=== PATIENT | female | born 1985 | race Hispanic/Latino ===

== ENCOUNTER 2020-05-06 05:15 | Inpatient (IN) | payer MEDICARE, OTHER ==
[2020-05-05] MEDS: SODIUM CHLORIDE 0.9% 1000ML 1,000 ML IV SCH (23:30)
[~2020-05-06] VITALS: Ht 162.6 cm; Wt 105.2 kg
[2020-05-06 06:32] LABS: BASOPHILS # (AUTO) 0.1 (0.0-0.1); BASOPHILS % 0.4 % (0.0-1.0); EOSINOPHILS # (AUTO) 0.1 (0.0-0.4); EOSINOPHILS % 0.4 % (0.0-6.0); HEMATOCRIT 39.7 % (34.2-44.1); HEMOGLOBIN 13.3 g/dL (12.0-16.0); LYMPHOCYTES # (AUTO) 1.7 (1.0-3.2); MEAN CORPUSCULAR HEMOGLOBIN 32.4 pg (28-32); MEAN CORPUSCULAR HGB CONC 33.5 g/dL (31-35); MEAN CORPUSCULAR VOLUME 96.8 fL (81-99); MONOCYTES # (AUTO) 1.3 (0.2-0.8); MONOCYTES % 8.1 % (4.4-11.3); NEUTROPHILS # (AUTO) 12.4 (2.1-6.9); NEUTROPHILS % 79.3 % (38.7-80.0); PLATELET COUNT 290 x10e3/uL (140-360); RED CELL DISTRIBUTION WIDTH 13.6 % (11.7-14.4)
[2020-05-06 07:07] LABS: ALANINE AMINOTRANSFERASE 14 IU/L (0-55); ALBUMIN 3.8 g/dL (3.5-5.0); ALBUMIN/GLOBULIN RATIO 0.8 (0.8-2.0); ALKALINE PHOSPHATASE 106 IU/L (40-150); ANION GAP 18.5 mmol/L (8-16); BLOOD UREA NITROGEN 11 mg/dL (7-26); BUN/CREATININE RATIO 12 (6-25); CALCIUM 9.3 mg/dL (8.4-10.2); CARBON DIOXIDE 18 mmol/L (22-29); CHLORIDE 103 mmol/L (98-107); CREATINE KINASE 132 IU/L (29-168); EST GLOMERULAR FILTRATION RATE > 60 ML/MIN (60-); GLUCOSE 85 mg/dL (74-118); POTASSIUM 3.5 mmol/L (3.5-5.1); SODIUM 136 mmol/L (136-145)
--- NOTE | 2020-05-06 07:15 | NUR ---
REPORT AND CARE OF PATIENT GIVEN TO DONNIE BULL
[2020-05-06 11:11] LABS: CLARITY,URINE SL CLOUDY (CLEAR); COLOR,URINE YELLOW (YELLOW); LEUKOCYTE ESTERASE ,URINE LARGE (NEGATIVE)
[2020-05-06 11:12] LABS: BILIRUBIN,URINE NEGATIVE (NEGATIVE); KETONES,URINE NEGATIVE (NEGATIVE); NITRITE,URINE NEGATIVE (NEGATIVE); PROTEIN,URINE DIPSTICK 2+ (NEGATIVE); URINE UROBILINOGEN 0.2 mg/dL (0.2 - 1)
[2020-05-06 11:15] LABS: AMPHETAMINES SCREEN,URINE NEGATIVE (NEGATIVE); BENZODIAZEPINES SCREEN,URINE POSITIVE (NEGATIVE); PHENCYCLIDINE SCREEN,URINE NEGATIVE (NEGATIVE)
[2020-05-06 11:25] LABS: BACTERIA,URINE RARE /HPF; EPITHELIAL CELLS,URINE FEW /LPF; RBC,URINE 21-50 /HPF (0-5); WBC,URINE (MAN) 21-50 /HPF (0-5)
[2020-05-06] MEDS ORDERED: ACETAMINOPHEN 325 MG TAB PO ONE ×2 (11:30→19:00)
[2020-05-06] MEDS ORDERED: SODIUM CHLORIDE 0.9% 1000ML 1,000 ML IV SCH (11:30)
[2020-05-06] MEDS ORDERED: SODIUM CHLORIDE 0.9% 1000ML 1,000 ML IV STA (11:38)
[2020-05-06] MEDS ORDERED: CEFTRIAXONE SOD 1 GM/NS 50 ML 50 ML IV ONE (11:45)
[2020-05-06] MEDS ORDERED: ONDANSETRON HCL INJ 2MG/ML 2ML 2 MG/ML VIAL IV STA (12:55)
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
[2020-05-06] MEDS ORDERED: ONDANSETRON HCL INJ 2MG/ML 2ML 2 MG/ML VIAL ONE (13:06)
[2020-05-06] MEDS ORDERED: PROMETHAZINE 12.5MG/ NACL 0.9% 12.5 MG/50 ML BAG IV ONE (15:30)
--- NOTE | 2020-05-06 16:42 | NUR ---
PT NOTED TO HAVE FEVER OF 103.3, DR. SENA NOTIFIED.
[2020-05-06] MEDS ORDERED: VANCOMYCIN 1GM/NS 250 ML 250 ML IV ONE (17:00)
--- NOTE | 2020-05-06 17:45 | Diagnostic Imaging Report ---
EXAMINATION: CHEST SINGLE (PORTABLE) INDICATION: ^Y ^FEVER ^[id number] ^1700 COMPARISON: None FINDINGS: AP view TUBES and LINES: None. LUNGS: Lungs are well inflated. Mild haziness in the left lower lobe. There is no evidence of pneumonia or pulmonary edema. PLEURA: No pleural effusion or pneumothorax. HEART AND MEDIASTINUM: The cardiomediastinal silhouette is unremarkable.. BONES AND SOFT TISSUES: Orthopedic hardware is overlying the cervical and upper thoracic spine. Soft tissues are unremarkable. UPPER ABDOMEN: No free air under the diaphragm. IMPRESSION: Nonspecific mild haziness in the left lower lobe without consolidations. Signed by: Dr. Padmaja Fink M.D. on 05/06/2020 5:41 PM
[2020-05-06] MEDS ORDERED: VANCOMYCIN 1GM/NS 250 ML 250 ML ONE (20:00)
[2020-05-06] MEDS ORDERED: MELATONIN 5 MG TABLET PO PRN (22:00)
[2020-05-06] MEDS: MIDODRINE 2.5 MG TAB PO SCH (22:00)
[2020-05-06] MEDS ORDERED: DOCUSATE SODIUM 100 MG CAP PO PRN (22:00)
[2020-05-06] MEDS: ACETAMINOPHEN 325 MG TAB PO PRN (22:35)
--- NOTE | 2020-05-06 22:48 | NUR ---
RECEIVED REPORT FROM [facility] NURSE. PATIENT ARRIVED VIA STRETCHER TO THE UNIT. PATIENT COMPLAINING OF BEING HOT AND HAVING GENERALIZED PAIN. PAIN MEDICATION WAS ADMINISTERED FEW MINUTES BEFORE ARRIVAL TO THE UNIT. VANCOMYCIN WAS RUNNING WHEN PATIENT ARRIVED. PATIENT IS A&OX3. CALL LIGHT AND BELONGINGS WITHIN REACH. PATIENT IS PARALYZED FROM T3 DOWN
[2020-05-06 22:55] VITALS: BP 115/60
[2020-05-06 22:56] VITALS: BP 115/60
[2020-05-06] MEDS: ONDANSETRON HCL INJ 2MG/ML 2ML 2 MG/ML VIAL IV PRN (23:27)
[2020-05-06] MEDS: MEROPENEM 1GM 100 ML IV SCH (23:30)
[2020-05-06] MEDS: SODIUM CHLORIDE 0.9% 1000ML 1,000 ML IV SCH (23:30)
[2020-05-07] VITALS (9 sets, daily range): BP systolic 95–125; BP diastolic 49–61
[2020-05-07] MEDS: IBUPROFEN 600 MG TAB PO PRN (00:39)
[2020-05-07] MEDS ORDERED: PNEUMOCOCCAL VACCINE POLYVALENT 23 MCG/0.5 ML VIAL IM SCH (02:35)
[2020-05-07] MEDS ORDERED: TYLENOL WITH C1 EACH PO (02:39)
[2020-05-07] MEDS ORDERED: HYDRALAZINE HCL25 MG PO (02:39)
[2020-05-07] MEDS ORDERED: BACLOFEN10 MG PO (02:39)
[2020-05-07] MEDS ORDERED: SERTRALINE HCL100 MG PO (02:39)
[2020-05-07] MEDS ORDERED: LEVOTHYROXINE50 MCG PO (02:39)
[2020-05-07] MEDS ORDERED: GABAPENTIN300 MG PO (02:39)
[2020-05-07] MEDS ORDERED: OXYBUTYNIN CHLOR5 MG PO (02:39)
[2020-05-07] MEDS: MEROPENEM 1GM 100 ML IV SCH ×3 (05:29→21:22)
[2020-05-07 06:08] LABS: BASOPHILS # (AUTO) 0.1 (0.0-0.1); BASOPHILS % 0.4 % (0.0-1.0); EOSINOPHILS # (AUTO) 0.1 (0.0-0.4); EOSINOPHILS % 0.7 % (0.0-6.0); HEMATOCRIT 33.3 % (34.2-44.1); HEMOGLOBIN 10.7 g/dL (12.0-16.0); LYMPHOCYTES # (AUTO) 1.1 (1.0-3.2); LYMPHOCYTES % 9.3 % (18.0-39.1); MEAN CORPUSCULAR HEMOGLOBIN 31.9 pg (28-32); MEAN CORPUSCULAR HGB CONC 32.1 g/dL (31-35); MEAN CORPUSCULAR VOLUME 99.4 fL (81-99); MONOCYTES # (AUTO) 0.9 (0.2-0.8); MONOCYTES % 7.7 % (4.4-11.3); NEUTROPHILS # (AUTO) 9.2 (2.1-6.9); NEUTROPHILS % 81.3 % (38.7-80.0); PLATELET COUNT 192 x10e3/uL (140-360); RED BLOOD COUNT 3.35 x10e6/uL (3.6-5.1)
[2020-05-07 06:28] LABS: ALANINE AMINOTRANSFERASE 10 IU/L (0-55); ALBUMIN 2.7 g/dL (3.5-5.0); ALBUMIN/GLOBULIN RATIO 0.7 (0.8-2.0); ALKALINE PHOSPHATASE 73 IU/L (40-150); ANION GAP 9.4 mmol/L (8-16); BLOOD UREA NITROGEN 11 mg/dL (7-26); BUN/CREATININE RATIO 15 (6-25); CALCIUM 8.2 mg/dL (8.4-10.2); CARBON DIOXIDE 24 mmol/L (22-29); CHLORIDE 109 mmol/L (98-107); CREATININE, SERUM 0.71 mg/dL (0.57-1.11); EST GLOMERULAR FILTRATION RATE > 60 ML/MIN (60-); GLUCOSE 93 mg/dL (74-118); POTASSIUM 3.4 mmol/L (3.5-5.1); SODIUM 139 mmol/L (136-145)
--- NOTE | 2020-05-07 07:13 | NUR ---
GAVE BEDSIDE SHIFT REPORT TO ONCOMING NURSE. CALL LIGHT WITHIN REACH. PATIENT IN BED. HOURLY ROUNDING PERFORMED
[2020-05-07] MEDS: MIDODRINE 2.5 MG TAB PO SCH ×3 (08:48→16:40)
[2020-05-07] MEDS: ONDANSETRON HCL INJ 2MG/ML 2ML 2 MG/ML VIAL IV PRN (10:00)
[2020-05-07] MEDS ORDERED: POTASSIUM CHLORIDE 20 MEQ TAB CR PO STA (13:29)
[2020-05-07] MEDS: BACLOFEN 10 MG TAB PO SCH ×3 (16:32→20:20)
[2020-05-07] MEDS: GABAPENTIN 300 MG CAP PO SCH ×2 (16:32→20:20)
[2020-05-07] MEDS: OXYBUTYNIN CHLORIDE 5 MG TAB PO SCH ×2 (16:32→20:20)
[2020-05-07] MEDS: ENOXAPARIN SOD INJ 40 MG/0.4 ML SYR SC SCH (16:40)
[2020-05-07] MEDS ORDERED: BACLOFEN 10 MG TAB PO SCH (18:00)
--- NOTE | 2020-05-07 18:50 | NUR ---
RECEIVED REPORT FROM PREVIOUS NURSE. CALL LIGHT WITHIN REACH. PATIENT IN BED. ROUNDING PERFORMED
[2020-05-07] MEDS: ACETAMINOPHEN 325 MG TAB PO PRN (20:40)
[2020-05-07] MEDS ORDERED: GABAPENTIN 300 MG CAP PO SCH (21:00)
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
--- NOTE | 2020-05-07 21:58 | Consultation ---
DATE OF CONSULTATION: REASON FOR CONSULTATION: UTI. HISTORY OF PRESENT ILLNESS: This patient, who is a very pleasant 35-year-old, who comes in with fever and chills, urgency and frequency. The patient is having urgency and frequency. She was admitted. The patient has history of EtOH, urinary incontinence, self-catheterization as an outpatient. PAST MEDICAL HISTORY: UTI. PAST SURGICAL HISTORY: Otherwise denies. PHYSICAL EXAMINATION: GENERAL: She is currently alert and oriented. VITALS SIGNS: Stable. Currently afebrile. HEENT: She is not icteric. NECK: Supple. CHEST: Clear. HEART: S1 and S2. ABDOMEN: Soft. LABORATORY DATA: Reviewed. IMPRESSION: Urinary tract infection, present on admission. Agree with blood cultures and urine cultures. Agree with intravenous antibiotic of meropenem. Supportive care is order. Further recommendations depending on the finding of her laboratory data and culture. MD JORDEN Camarillo/OREN /[id number]
[2020-05-08] VITALS (7 sets, daily range): BP systolic 97–123; BP diastolic 41–68
[2020-05-08] MEDS: LEVOTHYROXINE SODIUM 75 MCG TAB PO SCH (05:36)
[2020-05-08] MEDS: MEROPENEM 1GM 100 ML IV SCH ×3 (05:36→21:10)
[2020-05-08 06:16] LABS: BASOPHILS % 0.4 % (0.0-1.0); EOSINOPHILS # (AUTO) 0.2 (0.0-0.4); EOSINOPHILS % 2.1 % (0.0-6.0); HEMATOCRIT 31.1 % (34.2-44.1); HEMOGLOBIN 9.8 g/dL (12.0-16.0); LYMPHOCYTES # (AUTO) 1.1 (1.0-3.2); LYMPHOCYTES % 11.3 % (18.0-39.1); MEAN CORPUSCULAR HEMOGLOBIN 32.6 pg (28-32); MEAN CORPUSCULAR HGB CONC 31.5 g/dL (31-35); MEAN CORPUSCULAR VOLUME 103.3 fL (81-99); MONOCYTES # (AUTO) 0.6 (0.2-0.8); MONOCYTES % 5.7 % (4.4-11.3); NEUTROPHILS # (AUTO) 7.8 (2.1-6.9); NEUTROPHILS % 79.8 % (38.7-80.0); PLATELET COUNT 197 x10e3/uL (140-360); RED BLOOD COUNT 3.01 x10e6/uL (3.6-5.1); RED CELL DISTRIBUTION WIDTH 14.2 % (11.7-14.4)
[2020-05-08 06:37] LABS: ANION GAP 7.8 mmol/L (8-16); BLOOD UREA NITROGEN 8 mg/dL (7-26); BUN/CREATININE RATIO 11 (6-25); CALCIUM 7.9 mg/dL (8.4-10.2); CARBON DIOXIDE 25 mmol/L (22-29); CHLORIDE 112 mmol/L (98-107); EST GLOMERULAR FILTRATION RATE > 60 ML/MIN (60-); GLUCOSE 90 mg/dL (74-118); POTASSIUM 3.8 mmol/L (3.5-5.1); SODIUM 141 mmol/L (136-145)
--- NOTE | 2020-05-08 07:03 | NUR ---
GAVE BEDSIDE SHIFT REPORT TO ONCOMING NURSE. CALL LIGHT WITHIN REACH. PATIENT IN BED. HOURLY ROUNDING PERFORMED.
[2020-05-08] MEDS: BACLOFEN 10 MG TAB PO SCH ×4 (07:59→21:10)
[2020-05-08] MEDS: GABAPENTIN 300 MG CAP PO SCH ×3 (07:59→21:10)
[2020-05-08] MEDS: MIDODRINE 2.5 MG TAB PO SCH ×2 (07:59→12:33)
[2020-05-08] MEDS: SERTRALINE HCL 100 MG TAB PO SCH (07:59)
[2020-05-08] MEDS: OXYBUTYNIN CHLORIDE 5 MG TAB PO SCH ×3 (07:59→21:10)
--- NOTE | 2020-05-08 14:26 | Progress Note ---
DATE: 05/08/2020 Medicine Progress Note SUBJECTIVE: The patient is doing well today with no complaints. She has been afebrile overnight with no issues. She did have a T-max of 100. Waiting for urine cultures. PHYSICAL EXAMINATION: VITAL SIGNS: Temperature currently is 98.5, T-max is 100, pulse 95, respiratory rate is 20, blood pressure last recorded was 97/56, but apparently she has low blood pressures to begin with, 98% on room air. GENERAL: Not in acute distress. Alert and oriented x3. Cooperative on examination. HEENT: Head; normocephalic, atraumatic. Eyes; pupils are equal, round, and reactive to light bilaterally. Extraocular movements intact bilaterally. Throat; no evidence of erythema or exudates in the posterior pharynx. Has poor dentition. NECK: Supple. Good range of motion. PULMONARY: Clear to auscultation bilaterally. No wheezing, no rales, no rhonchi, no crackles appreciated. CARDIOVASCULAR: Positive S1 and S2. No murmurs, rubs, or gallops appreciated. ABDOMEN: Soft, nondistended, and nontender to palpation. Bowel sounds present. MUSCULOSKELETAL: Strength is 5/5 throughout. No evidence of any muscle deficits on examination. No weakness appreciated. NEUROLOGIC: Cranial nerves 2 through 12 grossly intact. No evidence of any neurological deficits on exam. SKIN: Intact. Warm to touch. Good cap refill. PSYCHIATRIC: Normal affect and mood. EXTREMITIES: No edema. Good range of motion throughout. LABORATORY DATA: White count 9.7, hemoglobin 9.1, hematocrit is 31, and platelets of 197. Chemistry; sodium 141, potassium 3.8, chloride 112, bicarb 25, anion gap of 7.8, BUN is 8, creatinine is 0.7, glucose 90, and calcium is 7.9. LFTs within normal range. Urine cultures, gram-negative bacilli. Blood cultures, no growth to date. Chest x-ray, nonspecific mild haziness in the left lower lobe without consolidation. Coronavirus PCR was found to be negative. IMPRESSION: 1. Metabolic encephalopathy, multifactorial from urinary tract infection as well as polysubstance abuse, now resolved. 2. Chronic alcohol abuse. 3. Positive urine drug screen. 4. Urinary tract infection. 5. Paraplegia, requiring chronic pain control. PLAN: At this time, urine cultures positive, awaiting for ID and sensitivities. Blood cultures no growth to date. Continue with IV antibiotics, in which ID is also following. She is on Lovenox for DVT prophylaxis. Replace electrolytes accordingly. Get a.m. labs. As for her blood pressure, I would like to talk with her and see if her blood pressure is always low. It seems like she has a low blood pressure to begin with. I also put on her baclofen and gabapentin, but she was requiring significant number of high doses, which were way past in maximum doses and which now are decreasing to appropriate levels. If her labs are back tomorrow, she can be potentially discharged home with oral antibiotic therapy. MD RUDDY Lin/OREN /[id number]
[2020-05-08] MEDS: ENOXAPARIN SOD INJ 40 MG/0.4 ML SYR SC SCH (18:24)
[2020-05-08] MEDS: IBUPROFEN 600 MG TAB PO PRN (22:02)
[2020-05-09] VITALS: BP 101/59
[2020-05-09 04:00] VITALS: BP 98/58
[2020-05-09] MEDS ORDERED: SODIUM CHLORIDE 0.9% 250ML 250 ML ONE (05:31)
[2020-05-09] MEDS: MEROPENEM 1GM 100 ML IV SCH (05:42)
[2020-05-09] MEDS: LEVOTHYROXINE SODIUM 75 MCG TAB PO SCH (06:30)
--- NOTE | 2020-05-09 07:00 | NUR ---
Bedside rounding completed and the pt. is in bed awake.
[2020-05-09 08:11] VITALS: BP 101/64
[2020-05-09 08:31] VITALS: BP 101/64
[2020-05-09] MEDS: OXYBUTYNIN CHLORIDE 5 MG TAB PO SCH (09:28)
[2020-05-09] MEDS: GABAPENTIN 300 MG CAP PO SCH (09:30)
[2020-05-09] MEDS: BACLOFEN 10 MG TAB PO SCH ×2 (09:30→14:19)
[2020-05-09] MEDS: SERTRALINE HCL 100 MG TAB PO SCH (09:30)
[2020-05-09] MEDS: ACETAMINOPHEN 325 MG TAB PO PRN (09:37)
[2020-05-09] MEDS ORDERED: CEFTRIAXONE SOD 2 GM/NS 100 ML 100 ML IV SCH (10:30)
[2020-05-09 11:52] VITALS: BP 104/60
[2020-05-09] MEDS ORDERED: ONDANSETRON HCL 4 MG ORAL DISINTEGRATING TAB PO PRN (13:15)
[2020-05-09] MEDS ORDERED: PNEUMOCOCCAL VACCINE POLYVALENT 23 MCG/0.5 ML VIAL IM ONE (15:00)
[2020-05-09 15:25] VITALS: BP 103/72
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
== END 2020-05-09 18:54 | disposition home or self-care (01) | DRG 689 ==
LOC: ER 05:45 → ERHOLD 20:19 → MED/SURG2 23:13 → OBSVTOIN 05-08 12:58
PROVIDERS: ADMIT Internal Medicine; ATTEND Internal Medicine
DX: N39.0 Urinary tract infection, site not specified (principal); G93.41 Metabolic encephalopathy; G82.20 Paraplegia, unspecified; F19.10 Other psychoactive substance abuse, uncomplicated; F10.10 Alcohol abuse, uncomplicated; G89.29 Other chronic pain; Z11.59 Encounter for screening for other viral diseases
CPT/HCPCS: 36415; 51701; 71045; 80048; 80053; 80307; 80320; 81001; 82550; 82553; 83605; 84484; 85025; 87040; 87086; 87186; 87635; 90732; 99285; G0378; J0696; J1650; J2405; J2550; J3370; J7030; J7050

== ENCOUNTER 2021-10-15 14:35 | Emergency (ER) | payer MEDICARE ==
[~2021-10-15] VITALS: Ht 162.6 cm; Wt 105.2 kg
[~2021-10-15 14:35] MED LIST: BACLOFEN10 MG PO; GABAPENTIN300 MG PO; HYDRALAZINE HCL25 MG PO; LEVOTHYROXINE50 MCG PO; OXYBUTYNIN CHLOR5 MG PO; SERTRALINE HCL100 MG PO; TYLENOL WITH C1 EACH PO
[2021-10-15 16:02] LABS: BASOPHILS # (AUTO) 0.1 (0.0-0.1); BASOPHILS % 0.7 % (0.0-1.0); EOSINOPHILS # (AUTO) 0.1 (0.0-0.4); EOSINOPHILS % 1.2 % (0.0-6.0); HEMATOCRIT 41.1 % (34.2-44.1); HEMOGLOBIN 13.4 g/dL (12.0-16.0); LYMPHOCYTES # (AUTO) 1.6 (1.0-3.2); LYMPHOCYTES % 16.6 % (18.0-39.1); MEAN CORPUSCULAR HEMOGLOBIN 31.3 pg (28-32); MEAN CORPUSCULAR HGB CONC 32.6 g/dL (31-35); MONOCYTES # (AUTO) 0.4 (0.2-0.8); MONOCYTES % 3.7 % (4.4-11.3); NEUTROPHILS # (AUTO) 7.5 (2.1-6.9); PLATELET COUNT 235 x10e3/uL (140-360); RED BLOOD COUNT 4.28 x10e6/uL (3.6-5.1); RED CELL DISTRIBUTION WIDTH 13.9 % (11.7-14.4)
[2021-10-15 16:19] LABS: CLARITY,URINE HAZY (CLEAR); COLOR,URINE YELLOW (YELLOW); KETONES,URINE NEGATIVE (NEGATIVE); LEUKOCYTE ESTERASE ,URINE LARGE (NEGATIVE); NITRITE,URINE NEGATIVE (NEGATIVE); PROTEIN,URINE DIPSTICK TRACE (NEGATIVE); URINE UROBILINOGEN 0.2 mg/dL (0.2 - 1)
[2021-10-15 16:31] LABS: BACTERIA,URINE MODERATE /HPF; WBC,URINE (MAN) 21-50 /HPF (0-5)
[2021-10-15 16:43] LABS: ALBUMIN 3.7 g/dL (3.5-5.0); ALBUMIN/GLOBULIN RATIO 0.7 (0.8-2.0); CREATININE, SERUM 0.81 mg/dL (0.57-1.11)
[2021-10-15] MEDS ORDERED: CEFTRIAXONE 1 GM VIAL IM ONE (17:30)
[2021-10-15] MEDS ORDERED: ACETAMINOPHEN 325 MG TAB PO ONE (17:45)
[2021-10-15] MEDS ORDERED: KEFLEX125 MG/5 M PO (18:27)
[2021-10-15] MEDS ORDERED: MOTRIN800 MG PO (18:27)
[2021-10-15] MEDS ORDERED: CEPHALEXIN500 MG PO (18:30)
[2021-10-15 19:01] VITALS: BP 154/78
== END 2021-10-15 19:02 | disposition home or self-care (01) ==
LOC: ER 14:39
DX: R10.30 Lower abdominal pain, unspecified (principal); N39.0 Urinary tract infection, site not specified; F32.A Depression, unspecified; G62.9 Polyneuropathy, unspecified; G82.20 Paraplegia, unspecified
CPT/HCPCS: 36415; 74176; 80053; 81001; 84702; 85025; 99283; J0696

== ENCOUNTER 2022-05-28 09:40 | Inpatient (IN) | payer MEDICARE ==
[~2022-05-28] VITALS: Ht 162.6 cm; Wt 105.2 kg
[~2022-05-28 09:40] MED LIST changes: +CEPHALEXIN500 MG PO; +KEFLEX125 MG/5 M PO; +MOTRIN800 MG PO
[2022-05-28] MEDS ORDERED: CEFTRIAXONE 1 GM VIAL IV NR (10:15)
[2022-05-28] MEDS ORDERED: SODIUM CHLORIDE 0.9% IV ONE (10:15)
[2022-05-28 10:45] LABS: BASOPHILS % 0.6 % (0.0-1.0); EOSINOPHILS # (AUTO) 0.1 (0.0-0.4); EOSINOPHILS % 2.2 % (0.0-6.0); HEMATOCRIT 33.3 % (34.2-44.1); HEMOGLOBIN 10.7 g/dL (12.0-16.0); LYMPHOCYTES # (AUTO) 1.2 (1.0-3.2); LYMPHOCYTES % 21.8 % (18.0-39.1); MEAN CORPUSCULAR HEMOGLOBIN 29.6 pg (28-32); MEAN CORPUSCULAR HGB CONC 32.1 g/dL (31-35); MEAN CORPUSCULAR VOLUME 92.2 fL (81-99); MONOCYTES # (AUTO) 0.3 (0.2-0.8); MONOCYTES % 5.5 % (4.4-11.3); NEUTROPHILS # (AUTO) 3.8 (2.1-6.9); NEUTROPHILS % 69.2 % (38.7-80.0); PLATELET COUNT 229 x10e3/uL (140-360); RED BLOOD COUNT 3.61 x10e6/uL (3.6-5.1); RED CELL DISTRIBUTION WIDTH 14.7 % (11.7-14.4)
[2022-05-28 10:55] LABS: INR 1.02; PARTIAL THROMBOPLASTIN TIME 31.1 seconds (23.8-35.5); PROTHROMBIN TIME 14.3 seconds (11.9-14.5)
[2022-05-28 11:06] LABS: ALBUMIN 3.5 g/dL (3.5-5.0); ALBUMIN/GLOBULIN RATIO 0.9 (0.8-2.0); CALCIUM 7.9 mg/dL (8.4-10.2); CREATININE, SERUM 0.83 mg/dL (0.57-1.11)
[2022-05-28 12:11] LABS: CLARITY,URINE CLOUDY (CLEAR); COLOR,URINE YELLOW (YELLOW); KETONES,URINE NEGATIVE (NEGATIVE); LEUKOCYTE ESTERASE ,URINE LARGE (NEGATIVE); NITRITE,URINE POSITIVE (NEGATIVE); PROTEIN,URINE DIPSTICK 1+ (NEGATIVE); URINE UROBILINOGEN 0.2 mg/dL (0.2 - 1)
[2022-05-28] MEDS ORDERED: KETOROLAC TROMETHAMINE 30 MG/ML VIAL IV STA (12:25)
[2022-05-28] MEDS ORDERED: ONDANSETRON HCL INJ 2MG/ML 2ML 2 MG/ML VIAL IV NR (12:30)
[2022-05-28] MEDS ORDERED: METOCLOPRAMIDE HCL 10 MG/2ML VIAL IV NR (12:30)
[2022-05-28 12:32] LABS: BACTERIA,URINE MANY /HPF; EPITHELIAL CELLS,URINE MODERATE /LPF; RBC,URINE >50 /HPF (0-5); WBC,URINE (MAN) >50 /HPF (0-5)
[2022-05-28] MEDS ORDERED: SODIUM CHLORIDE FLUSH 10 ML SYR INJ PRN (13:15)
[2022-05-28 16:26] VITALS: BP 105/60
[2022-05-28] MEDS ORDERED: GABAPENTIN 300 MG CAP PO SCH (18:00)
[2022-05-28] MEDS ORDERED: IBUPROFEN 400 MG TAB PO PRN (18:00)
[2022-05-28] MEDS ORDERED: ACETAMINOPHEN/CODEINE 300MG - 30MG TAB PO SCH (18:00)
[2022-05-28] MEDS ORDERED: HYDRALAZINE HCL 25 MG TAB PO SCH (18:00)
[2022-05-28] MEDS ORDERED: OMEPRAZOLE40 MG PO (18:07)
[2022-05-28] MEDS ORDERED: MIDODRINE HCL5 MG PO (18:07)
[2022-05-28] MEDS ORDERED: ELIQUIS5 MG PO (18:07)
[2022-05-28] MEDS ORDERED: PROMETHAZINE HC25 M1 PO (18:07)
[2022-05-28] MEDS ORDERED: GABAPENTIN400 MG PO (18:07)
[2022-05-28 18:11] VITALS: BP 105/60
[2022-05-28] MEDS ORDERED: MIDODRINE HCL 5 MG TABLET PO PRN (18:45)
[2022-05-28] MEDS: BACLOFEN 10 MG TAB PO SCH ×2 (18:56→19:38)
[2022-05-28 20:00] VITALS: BP 99/45
[2022-05-28] MEDS: OXYBUTYNIN CHLORIDE 5 MG TAB PO SCH (20:36)
[2022-05-28] MEDS: GABAPENTIN 400 MG CAP PO SCH (20:36)
[2022-05-28 21:00] VITALS: BP 99/45
[2022-05-28] MEDS: HYDROMORPHONE 1MG/1ML INJ IV PRN (22:27)
[2022-05-29] VITALS (8 sets, daily range): BP systolic 96–111; BP diastolic 55–73
[2022-05-29] MEDS: HYDROMORPHONE 1MG/1ML INJ IV PRN ×3 (04:59→22:14)
[2022-05-29] MEDS: LEVOTHYROXINE SODIUM 50 MCG TAB PO SCH (05:00)
[2022-05-29 05:40] LABS: BASOPHILS % 0.8 % (0.0-1.0); EOSINOPHILS # (AUTO) 0.1 (0.0-0.4); EOSINOPHILS % 2.9 % (0.0-6.0); HEMATOCRIT 34.6 % (34.2-44.1); HEMOGLOBIN 10.9 g/dL (12.0-16.0); LYMPHOCYTES # (AUTO) 1.6 (1.0-3.2); LYMPHOCYTES % 32.7 % (18.0-39.1); MEAN CORPUSCULAR HEMOGLOBIN 29.9 pg (28-32); MEAN CORPUSCULAR HGB CONC 31.5 g/dL (31-35); MEAN CORPUSCULAR VOLUME 95.1 fL (81-99); MONOCYTES # (AUTO) 0.3 (0.2-0.8); MONOCYTES % 5.1 % (4.4-11.3); NEUTROPHILS # (AUTO) 2.8 (2.1-6.9); NEUTROPHILS % 57.7 % (38.7-80.0); PLATELET COUNT 188 x10e3/uL (140-360); RED BLOOD COUNT 3.64 x10e6/uL (3.6-5.1); RED CELL DISTRIBUTION WIDTH 14.9 % (11.7-14.4)
[2022-05-29 06:33] LABS: ANION GAP 11.4 mmol/L (8-16); CALCIUM 7.6 mg/dL (8.4-10.2); CREATININE, SERUM 0.74 mg/dL (0.57-1.11); POTASSIUM 3.4 mmol/L (3.5-5.1)
[2022-05-29] MEDS: PANTOPRAZOLE SOD 40 MG TABEC PO SCH ×2 (10:27→15:32)
[2022-05-29] MEDS: MIDODRINE HCL 5 MG TABLET PO SCH ×3 (10:27→17:51)
[2022-05-29] MEDS: SERTRALINE HCL 100 MG TAB PO SCH (10:27)
[2022-05-29] MEDS: BACLOFEN 10 MG TAB PO SCH ×4 (10:27→22:14)
[2022-05-29] MEDS: OXYBUTYNIN CHLORIDE 5 MG TAB PO SCH ×3 (10:27→22:14)
[2022-05-29] MEDS: APIXABAN 5 MG TABLET PO SCH ×2 (10:28→17:50)
[2022-05-29] MEDS: GABAPENTIN 400 MG CAP PO SCH ×4 (10:28→22:14)
[2022-05-29] MEDS ORDERED: TEMAZEPAM 15 MG CAP PO PRN (12:30)
[2022-05-29] MEDS ORDERED: POTASSIUM CHLORIDE 10MEQ EA PO ONE (12:30)
[2022-05-29] MEDS: PROMETHAZINE HCL 25 MG TAB PO PRN (13:26)
[2022-05-30] VITALS (9 sets, daily range): BP systolic 100–126; BP diastolic 50–87
[2022-05-30] MEDS: LEVOTHYROXINE SODIUM 50 MCG TAB PO SCH (05:44)
[2022-05-30] MEDS: PROMETHAZINE HCL 25 MG TAB PO PRN (06:05)
[2022-05-30] MEDS: HYDROMORPHONE 1MG/1ML INJ IV PRN ×4 (06:05→23:20)
[2022-05-30 06:50] LABS: ANION GAP 9.8 mmol/L (8-16); CALCIUM 8.1 mg/dL (8.4-10.2); CREATININE, SERUM 0.67 mg/dL (0.57-1.11); POTASSIUM 3.8 mmol/L (3.5-5.1)
[2022-05-30] MEDS: MIDODRINE HCL 5 MG TABLET PO SCH ×3 (09:55→17:31)
[2022-05-30] MEDS: OXYBUTYNIN CHLORIDE 5 MG TAB PO SCH ×3 (09:56→21:06)
[2022-05-30] MEDS: BACLOFEN 10 MG TAB PO SCH ×4 (09:56→21:06)
[2022-05-30] MEDS: PANTOPRAZOLE SOD 40 MG TABEC PO SCH ×2 (09:57→17:30)
[2022-05-30] MEDS: SERTRALINE HCL 100 MG TAB PO SCH (09:57)
[2022-05-30] MEDS: GABAPENTIN 400 MG CAP PO SCH ×4 (09:57→21:06)
[2022-05-30] MEDS: APIXABAN 5 MG TABLET PO SCH ×2 (09:57→17:31)
[2022-05-31 04:00] VITALS: BP 101/68
[2022-05-31] MEDS: LEVOTHYROXINE SODIUM 50 MCG TAB PO SCH (05:55)
[2022-05-31] MEDS: HYDROMORPHONE 1MG/1ML INJ IV PRN ×2 (06:07→10:10)
[2022-05-31 07:59] VITALS: BP 99/58
[2022-05-31 08:00] VITALS: BP 99/58
[2022-05-31] MEDS: MIDODRINE HCL 5 MG TABLET PO SCH ×2 (08:00→13:00)
[2022-05-31] MEDS: BACLOFEN 10 MG TAB PO SCH ×2 (08:31→13:00)
[2022-05-31] MEDS: SERTRALINE HCL 100 MG TAB PO SCH (08:31)
[2022-05-31] MEDS: PANTOPRAZOLE SOD 40 MG TABEC PO SCH (08:32)
[2022-05-31] MEDS: GABAPENTIN 400 MG CAP PO SCH ×2 (08:32→13:00)
[2022-05-31] MEDS: APIXABAN 5 MG TABLET PO SCH (08:32)
[2022-05-31] MEDS: OXYBUTYNIN CHLORIDE 5 MG TAB PO SCH (08:32)
[2022-05-31] MEDS ORDERED: CIPRO500 MG PO (11:02)
[2022-05-31 11:36] VITALS: BP 115/68
== END 2022-05-31 13:40 | disposition home or self-care (01) | DRG 699 ==
LOC: ER 09:56 → ERHOLD 13:12 → MED/SURG2 15:58 → OBSVTOIN 05-29 08:31
DX: T83.518A Infection and inflammatory reaction due to other urinary catheter, initial encounter (principal); G82.22 Paraplegia, incomplete; N39.0 Urinary tract infection, site not specified; Z93.8 Other artificial opening status; D64.9 Anemia, unspecified; E87.6 Hypokalemia; F32.9 Major depressive disorder, single episode, unspecified; Z20.822 Contact with and (suspected) exposure to COVID-19
CPT/HCPCS: 0223U; 36415; 71045; 80048; 80053; 81001; 83605; 85025; 85610; 85730; 87040; 87086; 87186; 93005; 99284; G0378; J0696; J1170; J1885; J2765; J7030

== ENCOUNTER 2022-06-08 11:50 | Emergency (ER) | payer MEDICARE ==
[~2022-06-08] VITALS: Ht 162.6 cm; Wt 105.2 kg
[~2022-06-08 11:50] MED LIST changes: +CIPRO500 MG PO; +ELIQUIS5 MG PO; +GABAPENTIN400 MG PO; +MIDODRINE HCL5 MG PO; +OMEPRAZOLE40 MG PO; +PROMETHAZINE HC25 M1 PO
[2022-06-08] MEDS ORDERED: SODIUM CHLORIDE 0.9% 1000ML 1,000 ML IV ONE (12:45)
[2022-06-08 13:28] LABS: BASOPHILS % 0.6 % (0.0-1.0); EOSINOPHILS # (AUTO) 0.1 (0.0-0.4); EOSINOPHILS % 1.5 % (0.0-6.0); HEMATOCRIT 34.1 % (34.2-44.1); HEMOGLOBIN 10.9 g/dL (12.0-16.0); LYMPHOCYTES # (AUTO) 1.5 (1.0-3.2); LYMPHOCYTES % 20.9 % (18.0-39.1); MEAN CORPUSCULAR HEMOGLOBIN 29.9 pg (28-32); MEAN CORPUSCULAR VOLUME 93.4 fL (81-99); MONOCYTES # (AUTO) 0.3 (0.2-0.8); MONOCYTES % 4.7 % (4.4-11.3); NEUTROPHILS # (AUTO) 5.2 (2.1-6.9); NEUTROPHILS % 71.6 % (38.7-80.0); PLATELET COUNT 230 x10e3/uL (140-360); RED BLOOD COUNT 3.65 x10e6/uL (3.6-5.1); RED CELL DISTRIBUTION WIDTH 14.6 % (11.7-14.4)
[2022-06-08 13:38] LABS: CLARITY,URINE SL CLOUDY (CLEAR); COLOR,URINE YELLOW (YELLOW); KETONES,URINE TRACE (NEGATIVE); LEUKOCYTE ESTERASE ,URINE SMALL (NEGATIVE); NITRITE,URINE POSITIVE (NEGATIVE); PROTEIN,URINE DIPSTICK NEGATIVE (NEGATIVE); URINE UROBILINOGEN 0.2 mg/dL (0.2 - 1)
[2022-06-08 13:51] LABS: ALBUMIN 3.7 g/dL (3.5-5.0); ALBUMIN/GLOBULIN RATIO 0.8 (0.8-2.0); ANION GAP 10.8 mmol/L (8-16); CALCIUM 8.9 mg/dL (8.4-10.2); CREATININE, SERUM 0.79 mg/dL (0.57-1.11); POTASSIUM 3.8 mmol/L (3.5-5.1)
[2022-06-08 13:56] LABS: BACTERIA,URINE MANY /HPF; EPITHELIAL CELLS,URINE RARE /LPF; RBC,URINE 21-50 /HPF (0-5); WBC,URINE (MAN) 21-50 /HPF (0-5)
[2022-06-08] MEDS ORDERED: IOPAMIDOL 370 MG/ML 100 ML INFUS..BTL INJ ONE (14:28)
[2022-06-08] MEDS ORDERED: Morphine 4mg INJECTION 4 MG/ML INJ IV ONE (14:30)
[2022-06-08] MEDS ORDERED: CEFUROXIME500 MG PO (16:22)
[2022-06-08 16:33] VITALS: BP 115/70
== END 2022-06-08 16:35 | disposition home or self-care (01) ==
LOC: ER 12:10
DX: R30.0 Dysuria (principal); N39.0 Urinary tract infection, site not specified; N31.9 Neuromuscular dysfunction of bladder, unspecified; G82.20 Paraplegia, unspecified; F32.A Depression, unspecified
CPT/HCPCS: 36415; 74177; 80053; 81001; 83690; 84702; 85025; 87086; 99284; J2270; J7030; Q9967; 87186

== ENCOUNTER 2022-07-17 21:53 | Inpatient (IN) | payer MEDICARE ==
[~2022-07-17] VITALS: Ht 165.1 cm; Wt 127.5 kg
[~2022-07-17 21:53] MED LIST changes: +CEFUROXIME500 MG PO
[2022-07-17] MEDS ORDERED: KETOROLAC TROMETHAMINE 30 MG/ML VIAL IV STA (23:07)
[2022-07-17] MEDS ORDERED: SODIUM CHLORIDE 0.9% 1000ML 1,000 ML IV ONE (23:15)
[2022-07-18 00:28] LABS: CLARITY,URINE CLOUDY (CLEAR); COLOR,URINE YELLOW (YELLOW); KETONES,URINE TRACE (NEGATIVE); LEUKOCYTE ESTERASE ,URINE SMALL (NEGATIVE); NITRITE,URINE POSITIVE (NEGATIVE); PROTEIN,URINE DIPSTICK NEGATIVE (NEGATIVE); URINE UROBILINOGEN 0.2 mg/dL (0.2 - 1)
[2022-07-18 00:34] LABS: AMORPHOUS SEDIMENT,URINE FEW (FEW); BACTERIA,URINE MANY /HPF; EPITHELIAL CELLS,URINE FEW /LPF; WBC,URINE (MAN) 21-50 /HPF (0-5)
[2022-07-18 01:45] LABS: BASOPHILS # (AUTO) 0.1 (0.0-0.1); BASOPHILS % 0.9 % (0.0-1.0); EOSINOPHILS # (AUTO) 0.1 (0.0-0.4); EOSINOPHILS % 1.6 % (0.0-6.0); HEMATOCRIT 33.4 % (34.2-44.1); HEMOGLOBIN 10.5 g/dL (12.0-16.0); LYMPHOCYTES % 26.7 % (18.0-39.1); MEAN CORPUSCULAR HEMOGLOBIN 29.6 pg (28-32); MEAN CORPUSCULAR HGB CONC 31.4 g/dL (31-35); MEAN CORPUSCULAR VOLUME 94.1 fL (81-99); MONOCYTES # (AUTO) 0.4 (0.2-0.8); NEUTROPHILS # (AUTO) 4.8 (2.1-6.9); NEUTROPHILS % 65.3 % (38.7-80.0); PLATELET COUNT 264 x10e3/uL (140-360); RED BLOOD COUNT 3.55 x10e6/uL (3.6-5.1); RED CELL DISTRIBUTION WIDTH 14.2 % (11.7-14.4)
[2022-07-18 02:02] LABS: ALBUMIN 3.8 g/dL (3.5-5.0); ANION GAP 14.6 mmol/L (8-16); CALCIUM 8.9 mg/dL (8.4-10.2); CREATININE, SERUM 0.86 mg/dL (0.57-1.11); POTASSIUM 3.6 mmol/L (3.5-5.1)
[2022-07-18] MEDS ORDERED: PIPERACILLIN/TAZOBACTAM 4.5 GM in SODIUM CHLORIDE 0.9% 100 ML IV STA (02:53)
[2022-07-18] MEDS ORDERED: Morphine 4mg INJECTION 4 MG/ML INJ IV ONE (03:45)
[2022-07-18] MEDS: METOCLOPRAMIDE HCL 10 MG/2ML VIAL IV SCH ×3 (04:18→17:46)
[2022-07-18] MEDS ORDERED: KETOROLAC TROMETHAMINE 30 MG/ML VIAL IV PRN (06:00)
[2022-07-18] MEDS ORDERED: DOCUSATE SODIUM 100 MG CAP PO PRN (09:15)
[2022-07-18] MEDS ORDERED: ACETAMINOPHEN 325 MG TAB PO PRN (09:15)
[2022-07-18] MEDS ORDERED: MELATONIN 5 MG TABLET PO PRN (09:15)
[2022-07-18] MEDS ORDERED: HYDRALAZINE HCL 20 MG/ML VIAL IV PRN (09:15)
[2022-07-18] MEDS ORDERED: ALBUTEROL/IPRATROPIUM 3 ML NEB NEB PRN (09:15)
[2022-07-18] MEDS ORDERED: LIDOCAINE 4% PATCH TP PRN (09:15)
[2022-07-18] MEDS ORDERED: DIPHENHYDRAMINE HCL 25 MG CAP PO PRN (09:15)
[2022-07-18] MEDS ORDERED: BENZONATATE 100 MG CAP PO PRN (09:15)
[2022-07-18] MEDS ORDERED: SIMETHICONE 80 MG CHEW PO PRN (09:15)
[2022-07-18] MEDS ORDERED: DEXTROSE 50% SYRINGE 50 ML IV PRN (09:15)
[2022-07-18 10:30] VITALS: BP 130/68
[2022-07-18] MEDS: SODIUM CHLORIDE 0.9% 1000ML 1,000 ML IV SCH ×2 (10:39→13:49)
[2022-07-18 11:00] VITALS: BP 114/70
[2022-07-18] MEDS ORDERED: BACLOFEN 10 MG TAB PO SCH (13:00)
[2022-07-18] MEDS: GABAPENTIN 400 MG CAP PO SCH ×3 (13:15→20:56)
[2022-07-18] MEDS: OXYBUTYNIN CHLORIDE 5 MG TAB PO SCH ×2 (15:00→20:56)
[2022-07-18 15:48] VITALS: BP 108/57
[2022-07-18] MEDS: PANTOPRAZOLE SOD 40 MG TABEC PO SCH (16:30)
[2022-07-18] MEDS: APIXABAN 5 MG TABLET PO SCH (16:56)
[2022-07-18] MEDS ORDERED: ENOXAPARIN SOD INJ 40 MG/0.4 ML SYR SC SCH (17:00)
[2022-07-18] MEDS: BACLOFEN 10 MG TAB PO SCH ×2 (17:46→20:56)
[2022-07-18 20:00] VITALS: BP 93/52
[2022-07-19] VITALS (9 sets, daily range): BP systolic 94–113; BP diastolic 54–78
[2022-07-19] MEDS: Morphine 2mg Syringe 2 MG/ML SYR IV PRN ×3 (00:05→22:57)
[2022-07-19] MEDS: SODIUM CHLORIDE 0.9% 1000ML 1,000 ML IV SCH ×2 (05:32→16:43)
[2022-07-19] MEDS: METOCLOPRAMIDE HCL 10 MG/2ML VIAL IV SCH ×5 (05:32→23:24)
[2022-07-19] MEDS: LEVOTHYROXINE SODIUM 50 MCG TAB PO SCH (05:32)
[2022-07-19 05:41] LABS: BASOPHILS % 0.6 % (0.0-1.0); EOSINOPHILS # (AUTO) 0.1 (0.0-0.4); EOSINOPHILS % 2.4 % (0.0-6.0); HEMATOCRIT 31.8 % (34.2-44.1); HEMOGLOBIN 10.1 g/dL (12.0-16.0); LYMPHOCYTES # (AUTO) 1.5 (1.0-3.2); LYMPHOCYTES % 29.8 % (18.0-39.1); MEAN CORPUSCULAR HEMOGLOBIN 29.6 pg (28-32); MEAN CORPUSCULAR HGB CONC 31.8 g/dL (31-35); MEAN CORPUSCULAR VOLUME 93.3 fL (81-99); MONOCYTES # (AUTO) 0.3 (0.2-0.8); NEUTROPHILS # (AUTO) 3.1 (2.1-6.9); NEUTROPHILS % 61.8 % (38.7-80.0); PLATELET COUNT 232 x10e3/uL (140-360); RED BLOOD COUNT 3.41 x10e6/uL (3.6-5.1); RED CELL DISTRIBUTION WIDTH 14.3 % (11.7-14.4)
[2022-07-19 06:07] LABS: ANION GAP 11.7 mmol/L (8-16); CALCIUM 8.2 mg/dL (8.4-10.2); CREATININE, SERUM 0.75 mg/dL (0.57-1.11); POTASSIUM 3.7 mmol/L (3.5-5.1)
[2022-07-19 06:19] LABS: MAGNESIUM 1.8 MG/DL (1.3-2.1)
[2022-07-19] MEDS ORDERED: PANTOPRAZOLE SOD 40 MG TABEC PO SCH (07:30)
[2022-07-19] MEDS: PANTOPRAZOLE SOD 40 MG TABEC PO SCH ×2 (09:29→16:42)
[2022-07-19] MEDS: APIXABAN 5 MG TABLET PO SCH ×2 (09:29→16:44)
[2022-07-19] MEDS: OXYBUTYNIN CHLORIDE 5 MG TAB PO SCH ×3 (09:29→21:00)
[2022-07-19] MEDS: BACLOFEN 10 MG TAB PO SCH ×4 (09:31→21:00)
[2022-07-19] MEDS: GABAPENTIN 400 MG CAP PO SCH ×4 (09:31→21:00)
[2022-07-19] MEDS: SERTRALINE HCL 100 MG TAB PO SCH (09:32)
[2022-07-19] MEDS: HYDROCODONE/APAP 5MG-325MG TAB PO PRN (09:41)
[2022-07-20 00:46] VITALS: BP 106/64
[2022-07-20] MEDS: SODIUM CHLORIDE 0.9% 1000ML 1,000 ML IV SCH ×2 (02:00→12:00)
[2022-07-20] MEDS: HYDROCODONE/APAP 5MG-325MG TAB PO PRN ×2 (02:16→09:32)
[2022-07-20] MEDS: LEVOTHYROXINE SODIUM 50 MCG TAB PO SCH (05:10)
[2022-07-20] MEDS: METOCLOPRAMIDE HCL 10 MG/2ML VIAL IV SCH ×2 (05:10→13:11)
[2022-07-20 06:09] VITALS: BP 103/66
[2022-07-20 08:17] VITALS: BP 99/69
[2022-07-20 08:37] VITALS: BP 99/69
[2022-07-20] MEDS: PANTOPRAZOLE SOD 40 MG TABEC PO SCH (08:55)
[2022-07-20] MEDS: GABAPENTIN 400 MG CAP PO SCH ×2 (08:56→13:11)
[2022-07-20] MEDS: APIXABAN 5 MG TABLET PO SCH (08:56)
[2022-07-20] MEDS: OXYBUTYNIN CHLORIDE 5 MG TAB PO SCH ×2 (08:56→13:14)
[2022-07-20] MEDS: SERTRALINE HCL 100 MG TAB PO SCH (08:57)
[2022-07-20] MEDS: BACLOFEN 10 MG TAB PO SCH ×2 (09:34→13:14)
[2022-07-20 10:11] VITALS: BP 99/69
[2022-07-20 11:47] VITALS: BP 110/70
[2022-07-20] MEDS ORDERED: CEFDINIR300 MG PO (13:40)
[2022-07-20] MEDS ORDERED: METOCLOPRAMIDE HCL 10 MG TAB PO SCH (18:00)
== END 2022-07-20 16:30 | disposition home or self-care (01) | DRG 690 ==
LOC: ER 21:56 → ERHOLD 07-18 03:21 → MED/SURG 07-18 10:47
PROVIDERS: ADMIT Internal Medicine; ATTEND Internal Medicine
DX: N39.0 Urinary tract infection, site not specified (principal); Z16.12 Extended spectrum beta lactamase (ESBL) resistance; G82.20 Paraplegia, unspecified; Z68.42 Body mass index [BMI] 45.0-49.9, adult; B96.20 Unspecified Escherichia coli [E. coli] as the cause of diseases classified elsewhere; L89.312 Pressure ulcer of right buttock, stage 2; L89.322 Pressure ulcer of left buttock, stage 2; E66.01 Morbid (severe) obesity due to excess calories; N31.9 Neuromuscular dysfunction of bladder, unspecified; F32.A Depression, unspecified; E03.9 Hypothyroidism, unspecified; Z86.718 Personal history of other venous thrombosis and embolism; Z79.01 Long term (current) use of anticoagulants; Z99.3 Dependence on wheelchair; Z87.440 Personal history of urinary (tract) infections; Z88.2 Allergy status to sulfonamides; Z88.8 Allergy status to other drugs, medicaments and biological substances; Z20.822 Contact with and (suspected) exposure to COVID-19
CPT/HCPCS: 0223U; 36415; 80048; 80053; 81001; 83690; 83735; 84100; 85025; 87086; 87186; 94799; 99251; 99284; J1885; J2185; J2270; J2543; J2765; J7030; J7050

== ENCOUNTER 2022-07-31 09:32 | Outpatient (RCR) | payer MEDICARE ==
[~2022-07-31 09:32] MED LIST changes: +CEFDINIR300 MG PO
== END 2022-08-02 ==
LOC: WCC 09:32
PROVIDERS: ATTEND Family Medicine
DX: L89.312 Pressure ulcer of right buttock, stage 2 (principal); L89.622 Pressure ulcer of left heel, stage 2; I87.2 Venous insufficiency (chronic) (peripheral); R60.0 Localized edema; G82.22 Paraplegia, incomplete; E03.9 Hypothyroidism, unspecified; E66.01 Morbid (severe) obesity due to excess calories; F32.9 Major depressive disorder, single episode, unspecified; G99.0 Autonomic neuropathy in diseases classified elsewhere; N32.89 Other specified disorders of bladder; Z74.01 Bed confinement status

== ENCOUNTER 2022-11-30 22:29 | Emergency (ER) | payer MEDICARE ==
[~2022-11-30] VITALS: Ht 162.6 cm; Wt 113.4 kg
[2022-11-30] MEDS ORDERED: SODIUM CHLORIDE FLUSH 10 ML SYR IV PRN (23:00)
[2022-11-30] MEDS ORDERED: KETOROLAC TROMETHAMINE 30 MG/ML VIAL IV STA (23:20)
[2022-11-30 23:29] LABS: CLARITY,URINE CLOUDY (CLEAR); COLOR,URINE AMBER (YELLOW); KETONES,URINE NEGATIVE (NEGATIVE); LEUKOCYTE ESTERASE ,URINE 1+ (NEGATIVE); NITRITE,URINE NEGATIVE (NEGATIVE); PROTEIN,URINE DIPSTICK 2+ (NEGATIVE)
[2022-11-30 23:30] LABS: AMPHETAMINES SCREEN,URINE NEGATIVE (NEGATIVE); BENZODIAZEPINES SCREEN,URINE NEGATIVE (NEGATIVE); PHENCYCLIDINE SCREEN,URINE NEGATIVE (NEGATIVE); URINE UROBILINOGEN 0.2 mg/dL (0.2 - 1)
[2022-11-30] MEDS ORDERED: METOCLOPRAMIDE HCL 10 MG/2ML VIAL IV ONE (23:30)
[2022-11-30 23:36] LABS: BASOPHILS # (AUTO) 0.1 (0.0-0.1); BASOPHILS % 0.6 % (0.0-1.0); EOSINOPHILS # (AUTO) 0.2 (0.0-0.4); EOSINOPHILS % 1.7 % (0.0-6.0); HEMATOCRIT 31.2 % (34.2-44.1); HEMOGLOBIN 9.3 g/dL (12.0-16.0); LYMPHOCYTES # (AUTO) 2.2 (1.0-3.2); LYMPHOCYTES % 24.7 % (18.0-39.1); MEAN CORPUSCULAR HEMOGLOBIN 28.7 pg (28-32); MEAN CORPUSCULAR HGB CONC 29.8 g/dL (31-35); MEAN CORPUSCULAR VOLUME 96.3 fL (81-99); MONOCYTES # (AUTO) 0.4 (0.2-0.8); NEUTROPHILS % 67.5 % (38.7-80.0); PLATELET COUNT 230 x10e3/uL (140-360); RED BLOOD COUNT 3.24 x10e6/uL (3.6-5.1); RED CELL DISTRIBUTION WIDTH 14.1 % (11.7-14.4)
[2022-11-30 23:43] LABS: INR 1.02; PROTHROMBIN TIME 13.6 seconds (11.9-14.5)
[2022-11-30 23:44] LABS: BACTERIA,URINE MANY /HPF; EPITHELIAL CELLS,URINE FEW /LPF; PARTIAL THROMBOPLASTIN TIME 32.6 seconds (23.8-35.5); RBC,URINE >50 /HPF (0-5)
[2022-11-30 23:54] LABS: ALBUMIN 3.5 g/dL (3.5-5.0); ALBUMIN/GLOBULIN RATIO 0.9 (0.8-2.0); ANION GAP 11.6 mmol/L (8-16); CALCIUM 8.6 mg/dL (8.4-10.2); CREATININE, SERUM 0.77 mg/dL (0.57-1.11); POTASSIUM 3.6 mmol/L (3.5-5.1)
[2022-12-01] MEDS ORDERED: CEFTRIAXONE 1 GM VIAL ONE (00:25)
[2022-12-01] MEDS ORDERED: IOPAMIDOL 370 MG/ML 100 ML INFUS..BTL INJ ONE (00:56)
[2022-12-01] MEDS ORDERED: REGLAN10 MG PO (02:30)
[2022-12-01] MEDS ORDERED: CEFDINIR300 MG PO (02:30)
[2022-12-01] MEDS ORDERED: DOCUSATE SODIU100 MG PO (02:30)
[2022-12-01] MEDS ORDERED: FERGON240 MG PO (02:30)
[2022-12-01] MEDS ORDERED: NAPROSYN500 MG PO (02:31)
[2022-12-01] MEDS ORDERED: PROVERA10 MG PO (02:42)
[2022-12-01] MEDS ORDERED: IBUPROFEN800 MG PO (02:42)
[2022-12-01 02:52] VITALS: BP 111/85
[2022-12-30] MEDS ORDERED: MIDODRINE HCL5 MG PO (08:10)
[2022-12-30] MEDS ORDERED: HIPREX1 GM PO (08:10)
== END 2022-12-01 02:53 | disposition home or self-care (01) ==
LOC: ER 22:35
DX: N93.8 Other specified abnormal uterine and vaginal bleeding (principal); N94.6 Dysmenorrhea, unspecified; N39.0 Urinary tract infection, site not specified; R10.32 Left lower quadrant pain; G82.20 Paraplegia, unspecified; R11.0 Nausea; D64.9 Anemia, unspecified; F32.A Depression, unspecified; N31.9 Neuromuscular dysfunction of bladder, unspecified; F17.210 Nicotine dependence, cigarettes, uncomplicated
CPT/HCPCS: 36415; 74177; 80053; 80307; 81001; 81025; 85025; 85610; 85730; 87086; 87186; 99284; J0696; J1885; J2765; Q9967

== ENCOUNTER 2022-12-26 15:50 | Inpatient (IN) | payer MEDICARE ==
[~2022-12-26] VITALS: Ht 162.6 cm; Wt 122.2 kg
[~2022-12-26 15:50] MED LIST changes: +DOCUSATE SODIU100 MG PO; +FERGON240 MG PO; +IBUPROFEN800 MG PO; +NAPROSYN500 MG PO; +PROVERA10 MG PO; +REGLAN10 MG PO
[2022-12-26 23:00] VITALS: BP 100/53
[2022-12-26] MEDS ORDERED: SODIUM CHLORIDE FLUSH 10 ML SYR INJ PRN (23:15)
[2022-12-26 23:30] VITALS: BP 100/53
[2022-12-26] MEDS ORDERED: ACETAMINOPHEN 325 MG TAB PO PRN (23:30)
[2022-12-26] MEDS ORDERED: MELATONIN 5 MG TABLET PO PRN (23:30)
[2022-12-27] VITALS (8 sets, daily range): BP systolic 89–119; BP diastolic 53–70
[2022-12-27 00:16] LABS: BASOPHILS # (AUTO) 0.1 (0.0-0.1); BASOPHILS % 0.7 % (0.0-1.0); EOSINOPHILS # (AUTO) 0.2 (0.0-0.4); EOSINOPHILS % 3.1 % (0.0-6.0); HEMATOCRIT 28.7 % (34.2-44.1); HEMOGLOBIN 9.1 g/dL (12.0-16.0); LYMPHOCYTES % 29.1 % (18.0-39.1); MEAN CORPUSCULAR HEMOGLOBIN 28.2 pg (28-32); MEAN CORPUSCULAR HGB CONC 31.7 g/dL (31-35); MEAN CORPUSCULAR VOLUME 88.9 fL (81-99); MONOCYTES # (AUTO) 0.3 (0.2-0.8); MONOCYTES % 4.9 % (4.4-11.3); NEUTROPHILS # (AUTO) 4.2 (2.1-6.9); NEUTROPHILS % 61.6 % (38.7-80.0); PLATELET COUNT 258 x10e3/uL (140-360); RED BLOOD COUNT 3.23 x10e6/uL (3.6-5.1); RED CELL DISTRIBUTION WIDTH 14.4 % (11.7-14.4)
[2022-12-27] MEDS: MEROPENEM 1 GM in SODIUM CHLORIDE 0.9% 100 ML IV SCH ×4 (00:33→21:26)
[2022-12-27] MEDS: METOCLOPRAMIDE HCL 10 MG TAB PO SCH ×5 (00:33→23:11)
[2022-12-27 00:35] LABS: ALBUMIN 3.5 g/dL (3.5-5.0); ALBUMIN/GLOBULIN RATIO 0.9 (0.8-2.0); ANION GAP 13.3 mmol/L (8-16); CREATININE, SERUM 0.83 mg/dL (0.57-1.11); POTASSIUM 3.3 mmol/L (3.5-5.1)
[2022-12-27] MEDS ORDERED: SODIUM CHLORIDE 0.9% 250ML 250 ML ONE (00:40)
[2022-12-27 07:03] LABS: ALBUMIN 3.3 g/dL (3.5-5.0); ANION GAP 10.4 mmol/L (8-16); CALCIUM 8.5 mg/dL (8.4-10.2); CREATININE, SERUM 0.71 mg/dL (0.57-1.11); POTASSIUM 3.4 mmol/L (3.5-5.1)
[2022-12-27] MEDS: DOCUSATE SODIUM 100 MG CAP PO SCH ×2 (09:00→16:27)
[2022-12-27] MEDS: GABAPENTIN 400 MG CAP PO SCH ×4 (09:45→21:26)
[2022-12-27] MEDS: PANTOPRAZOLE SOD 40 MG TABEC PO SCH ×2 (09:46→16:47)
[2022-12-27] MEDS: OXYBUTYNIN CHLORIDE 5 MG TAB PO SCH ×3 (09:46→21:25)
[2022-12-27] MEDS: SERTRALINE HCL 100 MG TAB PO SCH (09:48)
[2022-12-27] MEDS: LEVOTHYROXINE SODIUM 50 MCG TAB PO SCH (09:48)
[2022-12-27] MEDS: MEDROXYPROGESTERONE ACETATE 2.5 MG TAB PO SCH (09:48)
[2022-12-27] MEDS: APIXABAN 5 MG TABLET PO SCH ×2 (09:49→16:47)
[2022-12-27] MEDS: BACLOFEN 10 MG TAB PO SCH ×4 (09:49→21:25)
[2022-12-27] MEDS ORDERED: POTASSIUM CHLORIDE 20 MEQ TAB CR PO ONE (10:30)
[2022-12-27] MEDS: FERROUS SULFATE 325 MG TAB PO SCH (10:32)
[2022-12-27] MEDS: Morphine 2mg Syringe 2 MG/ML SYR IV PRN ×2 (17:15→21:30)
[2022-12-28] VITALS (12 sets, daily range): BP systolic 93–110; BP diastolic 40–62
[2022-12-28] MEDS: Morphine 2mg Syringe 2 MG/ML SYR IV PRN ×5 (03:08→18:55)
[2022-12-28] MEDS: METOCLOPRAMIDE HCL 10 MG TAB PO SCH ×4 (05:08→23:53)
[2022-12-28 06:53] LABS: BASOPHILS % 0.8 % (0.0-1.0); EOSINOPHILS # (AUTO) 0.2 (0.0-0.4); EOSINOPHILS % 3.1 % (0.0-6.0); HEMATOCRIT 27.6 % (34.2-44.1); HEMOGLOBIN 8.4 g/dL (12.0-16.0); LYMPHOCYTES # (AUTO) 1.4 (1.0-3.2); LYMPHOCYTES % 29.1 % (18.0-39.1); MEAN CORPUSCULAR HEMOGLOBIN 27.6 pg (28-32); MEAN CORPUSCULAR HGB CONC 30.4 g/dL (31-35); MEAN CORPUSCULAR VOLUME 90.8 fL (81-99); MONOCYTES # (AUTO) 0.3 (0.2-0.8); MONOCYTES % 5.2 % (4.4-11.3); NEUTROPHILS # (AUTO) 2.9 (2.1-6.9); PLATELET COUNT 216 x10e3/uL (140-360); RED BLOOD COUNT 3.04 x10e6/uL (3.6-5.1); RED CELL DISTRIBUTION WIDTH 14.6 % (11.7-14.4)
[2022-12-28 07:14] LABS: ALBUMIN 3.1 g/dL (3.5-5.0); ALBUMIN/GLOBULIN RATIO 0.9 (0.8-2.0); ANION GAP 8.6 mmol/L (8-16); CALCIUM 8.1 mg/dL (8.4-10.2); CREATININE, SERUM 0.73 mg/dL (0.57-1.11); POTASSIUM 3.6 mmol/L (3.5-5.1)
[2022-12-28 07:26] LABS: FERRITIN 9.07 ng/mL (4.63-204.00)
[2022-12-28] MEDS: LEVOTHYROXINE SODIUM 50 MCG TAB PO SCH (08:39)
[2022-12-28] MEDS: PANTOPRAZOLE SOD 40 MG TABEC PO SCH ×2 (08:39→17:28)
[2022-12-28] MEDS: OXYBUTYNIN CHLORIDE 5 MG TAB PO SCH ×3 (08:39→20:27)
[2022-12-28] MEDS: SERTRALINE HCL 100 MG TAB PO SCH (08:40)
[2022-12-28] MEDS: BACLOFEN 10 MG TAB PO SCH ×4 (08:40→20:26)
[2022-12-28] MEDS: APIXABAN 5 MG TABLET PO SCH ×2 (08:40→17:28)
[2022-12-28] MEDS: FERROUS SULFATE 325 MG TAB PO SCH (08:40)
[2022-12-28] MEDS: DOCUSATE SODIUM 100 MG CAP PO SCH ×2 (08:40→17:00)
[2022-12-28] MEDS: GABAPENTIN 400 MG CAP PO SCH ×4 (08:40→20:26)
[2022-12-28] MEDS: MEDROXYPROGESTERONE ACETATE 2.5 MG TAB PO SCH (08:41)
[2022-12-28] MEDS ORDERED: MIDODRINE HCL 5 MG TABLET PO SCH (12:30)
[2022-12-28] MEDS: FOLIC ACID 1 MG TAB PO SCH (13:49)
[2022-12-28] MEDS: MIDODRINE HCL 5 MG TABLET PO SCH (20:29)
[2022-12-29] VITALS (7 sets, daily range): BP systolic 98–110; BP diastolic 40–70
[2022-12-29] MEDS: Morphine 2mg Syringe 2 MG/ML SYR IV PRN ×5 (00:05→23:57)
[2022-12-29] MEDS: METOCLOPRAMIDE HCL 10 MG TAB PO SCH ×4 (05:29→23:57)
[2022-12-29 07:46] LABS: BASOPHILS # (AUTO) 0.1 (0.0-0.1); BASOPHILS % 0.9 % (0.0-1.0); EOSINOPHILS # (AUTO) 0.1 (0.0-0.4); EOSINOPHILS % 2.2 % (0.0-6.0); HEMATOCRIT 29.3 % (34.2-44.1); HEMOGLOBIN 8.8 g/dL (12.0-16.0); LYMPHOCYTES # (AUTO) 1.4 (1.0-3.2); LYMPHOCYTES % 25.5 % (18.0-39.1); MEAN CORPUSCULAR HEMOGLOBIN 27.3 pg (28-32); MONOCYTES # (AUTO) 0.3 (0.2-0.8); MONOCYTES % 5.1 % (4.4-11.3); NEUTROPHILS # (AUTO) 3.6 (2.1-6.9); NEUTROPHILS % 65.9 % (38.7-80.0); PLATELET COUNT 222 x10e3/uL (140-360); RED BLOOD COUNT 3.22 x10e6/uL (3.6-5.1); RED CELL DISTRIBUTION WIDTH 14.6 % (11.7-14.4)
[2022-12-29 08:12] LABS: ALBUMIN 3.1 g/dL (3.5-5.0); ALBUMIN/GLOBULIN RATIO 0.9 (0.8-2.0); ANION GAP 11.7 mmol/L (8-16); CREATININE, SERUM 0.75 mg/dL (0.57-1.11); POTASSIUM 3.7 mmol/L (3.5-5.1)
[2022-12-29] MEDS: DOCUSATE SODIUM 100 MG CAP PO SCH ×2 (08:23→17:00)
[2022-12-29] MEDS: LEVOTHYROXINE SODIUM 50 MCG TAB PO SCH (08:24)
[2022-12-29] MEDS: GABAPENTIN 400 MG CAP PO SCH ×4 (08:24→22:29)
[2022-12-29] MEDS: MEDROXYPROGESTERONE ACETATE 2.5 MG TAB PO SCH (08:24)
[2022-12-29] MEDS: SERTRALINE HCL 100 MG TAB PO SCH (08:24)
[2022-12-29] MEDS: PANTOPRAZOLE SOD 40 MG TABEC PO SCH ×2 (08:25→17:30)
[2022-12-29] MEDS: BACLOFEN 10 MG TAB PO SCH ×4 (08:25→22:29)
[2022-12-29] MEDS: FOLIC ACID 1 MG TAB PO SCH (08:25)
[2022-12-29] MEDS: APIXABAN 5 MG TABLET PO SCH ×2 (08:25→17:30)
[2022-12-29] MEDS: FERROUS SULFATE 325 MG TAB PO SCH (08:25)
[2022-12-29] MEDS: MIDODRINE HCL 5 MG TABLET PO SCH ×2 (08:26→17:30)
[2022-12-29] MEDS: OXYBUTYNIN CHLORIDE 5 MG TAB PO SCH ×3 (08:26→22:29)
[2022-12-30] VITALS: BP 95/50
[2022-12-30 04:00] VITALS: BP 100/57
[2022-12-30] MEDS: METOCLOPRAMIDE HCL 10 MG TAB PO SCH ×2 (05:59→12:04)
[2022-12-30] MEDS: Morphine 2mg Syringe 2 MG/ML SYR IV PRN ×3 (06:14→14:21)
[2022-12-30 06:37] LABS: BASOPHILS % 0.8 % (0.0-1.0); EOSINOPHILS # (AUTO) 0.1 (0.0-0.4); EOSINOPHILS % 2.3 % (0.0-6.0); HEMATOCRIT 27.9 % (34.2-44.1); HEMOGLOBIN 8.5 g/dL (12.0-16.0); LYMPHOCYTES # (AUTO) 1.5 (1.0-3.2); MEAN CORPUSCULAR HEMOGLOBIN 27.7 pg (28-32); MEAN CORPUSCULAR HGB CONC 30.5 g/dL (31-35); MEAN CORPUSCULAR VOLUME 90.9 fL (81-99); MONOCYTES # (AUTO) 0.3 (0.2-0.8); MONOCYTES % 5.7 % (4.4-11.3); NEUTROPHILS # (AUTO) 2.9 (2.1-6.9); NEUTROPHILS % 59.6 % (38.7-80.0); PLATELET COUNT 225 x10e3/uL (140-360); RED BLOOD COUNT 3.07 x10e6/uL (3.6-5.1); RED CELL DISTRIBUTION WIDTH 14.6 % (11.7-14.4)
[2022-12-30 07:02] LABS: ALBUMIN 3.1 g/dL (3.5-5.0); ANION GAP 8.9 mmol/L (8-16); CREATININE, SERUM 0.72 mg/dL (0.57-1.11); POTASSIUM 3.9 mmol/L (3.5-5.1)
[2022-12-30] MEDS ORDERED: MIDODRINE HCL5 MG PO (08:10)
[2022-12-30] MEDS ORDERED: HIPREX1 GM PO (08:10)
[2022-12-30 08:33] VITALS: BP 93/47
[2022-12-30] MEDS: MEDROXYPROGESTERONE ACETATE 2.5 MG TAB PO SCH (09:02)
[2022-12-30] MEDS: DOCUSATE SODIUM 100 MG CAP PO SCH (09:03)
[2022-12-30] MEDS: LEVOTHYROXINE SODIUM 50 MCG TAB PO SCH (09:03)
[2022-12-30] MEDS: GABAPENTIN 400 MG CAP PO SCH ×2 (09:03→12:03)
[2022-12-30] MEDS: SERTRALINE HCL 100 MG TAB PO SCH (09:04)
[2022-12-30] MEDS: BACLOFEN 10 MG TAB PO SCH ×2 (09:04→12:04)
[2022-12-30] MEDS: FOLIC ACID 1 MG TAB PO SCH (09:04)
[2022-12-30] MEDS: APIXABAN 5 MG TABLET PO SCH (09:04)
[2022-12-30] MEDS: MIDODRINE HCL 5 MG TABLET PO SCH (09:04)
[2022-12-30] MEDS: PANTOPRAZOLE SOD 40 MG TABEC PO SCH (09:05)
[2022-12-30] MEDS: FERROUS SULFATE 325 MG TAB PO SCH (09:05)
[2022-12-30] MEDS: OXYBUTYNIN CHLORIDE 5 MG TAB PO SCH ×2 (09:05→13:46)
[2022-12-30 09:09] VITALS: BP 93/47
[2022-12-30 11:33] VITALS: BP 101/54
== END 2022-12-30 15:50 | disposition home or self-care (01) | DRG 699 ==
LOC: MED/SURG 22:38 → MED/SURG3 12-27 02:53
PROVIDERS: ADMIT Family Medicine Adult Medicine; ATTEND Family Medicine Adult Medicine
PROC: 05HY33Z Insertion of Infusion Device into Upper Vein, Percutaneous Approach (ICD-10-PCS; principal; 2022-12-26)
DX: T83.518A Infection and inflammatory reaction due to other urinary catheter, initial encounter (principal); G82.20 Paraplegia, unspecified; Z16.12 Extended spectrum beta lactamase (ESBL) resistance; Z68.41 Body mass index [BMI] 40.0-44.9, adult; N30.91 Cystitis, unspecified with hematuria; B96.1 Klebsiella pneumoniae [K. pneumoniae] as the cause of diseases classified elsewhere; T14.8XXS Other injury of unspecified body region, sequela; Z79.899 Other long term (current) drug therapy; E66.01 Morbid (severe) obesity due to excess calories; D64.9 Anemia, unspecified; N31.9 Neuromuscular dysfunction of bladder, unspecified; Z20.822 Contact with and (suspected) exposure to COVID-19; Z86.718 Personal history of other venous thrombosis and embolism; Z79.01 Long term (current) use of anticoagulants; N39.498 Other specified urinary incontinence; Z88.3 Allergy status to other anti-infective agents; Z88.5 Allergy status to narcotic agent; Z88.2 Allergy status to sulfonamides; Z88.8 Allergy status to other drugs, medicaments and biological substances
CPT/HCPCS: 36415; 80053; 82607; 82728; 82746; 83540; 84466; 85025; 99252; J2185; J2270; J7050

== ENCOUNTER 2023-04-20 22:36 | Emergency (ER) | payer MEDICARE ==
[~2023-04-20] VITALS: Ht 162.6 cm; Wt 122.0 kg
[~2023-04-20 22:36] MED LIST changes: +HIPREX1 GM PO
[2023-04-20] MEDS ORDERED: ONDANSETRON HCL 4 MG ORAL DISINTEGRATING TAB PO STA (22:58)
[2023-04-20] MEDS ORDERED: KETOROLAC TROMETHAMINE 60 MG/2 ML VIAL IM STA (22:58)
[2023-04-20] MEDS ORDERED: PROMETHAZINE HCL (IM) 25 MG/ML VIAL IM STA (23:21)
[2023-04-20 23:39] LABS: CLARITY,URINE CLOUDY (CLEAR); KETONES,URINE NEGATIVE (NEGATIVE); LEUKOCYTE ESTERASE ,URINE 1+ (NEGATIVE); NITRITE,URINE NEGATIVE (NEGATIVE); PROTEIN,URINE DIPSTICK 2+ (NEGATIVE); URINE UROBILINOGEN 0.2 mg/dL (0.2 - 1)
[2023-04-20 23:46] LABS: BACTERIA,URINE MANY /HPF; COLOR,URINE AMBER (YELLOW); EPITHELIAL CELLS,URINE FEW /LPF; MUCUS,URINE MANY (RARE); RBC,URINE >50 /HPF (0-5); TRANSITIONAL EPI CELLS,URINE FEW; WBC,URINE (MAN) >50 /HPF (0-5)
[2023-04-21] MEDS ORDERED: CIPROFLOXACIN 500 MG TAB PO STA (00:35)
[2023-04-21] MEDS ORDERED: CIPRO500 MG PO (00:39)
[2023-04-21] MEDS ORDERED: KETOROLAC TROME10 MG PO (00:39)
[2023-04-21] MEDS ORDERED: CIPROFLOXACIN 500 MG TAB ONE (00:48)
[2023-04-21 00:50] VITALS: O2SAT 100
== END 2023-04-21 01:00 | disposition home or self-care (01) ==
LOC: ER 22:53
DX: R18.8 Other ascites (principal); G82.20 Paraplegia, unspecified; F32.A Depression, unspecified; F17.210 Nicotine dependence, cigarettes, uncomplicated
CPT/HCPCS: 74176; 81001; 81025; 87086; 99283; J1885; J2550

== ENCOUNTER 2023-12-29 19:30 | Inpatient (IN) | payer MEDICARE ==
[~2023-12-29] VITALS: Ht 162.6 cm; Wt 122.0 kg
[~2023-12-29 19:30] MED LIST changes: +KETOROLAC TROME10 MG PO
[2023-12-29 20:44] LABS: BASOPHILS % 0.5 % (0.0-1.0); EOSINOPHILS # (AUTO) 0.1 (0.0-0.4); EOSINOPHILS % 1.6 % (0.0-6.0); HEMATOCRIT 34.5 % (34.2-44.1); LYMPHOCYTES # (AUTO) 1.7 (1.0-3.2); LYMPHOCYTES % 25.9 % (18.0-39.1); MEAN CORPUSCULAR HEMOGLOBIN 29.5 pg (28-32); MEAN CORPUSCULAR HGB CONC 31.9 g/dL (31-35); MEAN CORPUSCULAR VOLUME 92.5 fL (81-99); MONOCYTES # (AUTO) 0.4 (0.2-0.8); NEUTROPHILS # (AUTO) 4.2 (2.1-6.9); NEUTROPHILS % 65.5 % (38.7-80.0); PLATELET COUNT 218 x10e3/uL (140-360); RED BLOOD COUNT 3.73 x10e6/uL (3.6-5.1); RED CELL DISTRIBUTION WIDTH 14.3 % (11.7-14.4); WHITE BLOOD COUNT 6.45 x10e3/uL (4.8-10.8)
[2023-12-29 21:04] LABS: CREATINE KINASE 116 IU/L (29-168)
[2023-12-29 21:06] LABS: ALBUMIN 3.8 g/dL (3.5-5.0); ALBUMIN/GLOBULIN RATIO 1.2 (0.8-2.0); ANION GAP 12.4 mmol/L (8-16); BILIRUBIN,TOTAL 0.6 mg/dL (0.2-1.2); CALCIUM 8.5 mg/dL (8.4-10.2); CREATININE, SERUM 0.76 mg/dL (0.57-1.11); TOTAL PROTEIN 7.1 g/dL (6.5-8.1)
[2023-12-29 21:07] LABS: POTASSIUM 3.4 mmol/L (3.5-5.1)
[2023-12-29] MEDS: SODIUM CHLORIDE 0.9% 1000ML 1,000 ML IV STA (21:08)
[2023-12-29 21:11] LABS: TROPONIN I < 0.001 ng/mL (0-0.300)
[2023-12-29 21:41] LABS: CLARITY,URINE CLOUDY (CLEAR); COLOR,URINE RED (YELLOW); LEUKOCYTE ESTERASE ,URINE NEGATIVE (NEGATIVE); NITRITE,URINE POSITIVE (NEGATIVE); PH,URINE 6 (5 - 7); PROTEIN,URINE DIPSTICK >=300 (NEGATIVE)
[2023-12-29 21:42] LABS: AMPHETAMINES SCREEN,URINE NEGATIVE (NEGATIVE); BENZODIAZEPINES SCREEN,URINE NEGATIVE (NEGATIVE); CANNABINOIDS SCREEN,URINE NEGATIVE (NEGATIVE); GLUCOSE, URINE NEGATIVE (NEGATIVE); KETONES,URINE 1+ (NEGATIVE); PHENCYCLIDINE SCREEN,URINE NEGATIVE (NEGATIVE)
[2023-12-29 21:43] LABS: BILIRUBIN,URINE 3+ (NEGATIVE); METHADONE SCREEN, URINE POSITIVE (NEGATIVE); URINE UROBILINOGEN 1 mg/dL (0.2 - 1)
[2023-12-29 21:44] LABS: OPIATES SCREEN,URINE NEGATIVE (NEGATIVE)
[2023-12-29 21:54] LABS: RBC,URINE >50 /HPF (0-5)
[2023-12-29 21:55] LABS: BACTERIA,URINE MANY /HPF; EPITHELIAL CELLS,URINE MODERATE /LPF
[2023-12-29] MEDS ORDERED: IOPAMIDOL 370 MG/ML 100 ML INFUS..BTL INJ ONE (22:40)
[2023-12-29 23:38] LABS: CHOL/HDL RATIO 4.4 (3.0-3.6)
[2023-12-29] MEDS: SODIUM CHLORIDE 0.9% 1000ML 1,000 ML IV SCH (23:50)
[2023-12-30] VITALS (9 sets, daily range): BP systolic 100–162; BP diastolic 58–77; PULSE 70–86; RESP 17–19; TEMP 97.3–98.3; O2SAT 95–100
[2023-12-30] MEDS ORDERED: OXCARBAZEPINE600 MG PO (05:01)
[2023-12-30] MEDS ORDERED: OXYBUTYNIN CHLOR5 MG PO (05:06)
[2023-12-30 07:02] LABS: BASOPHILS % 0.6 % (0.0-1.0); EOSINOPHILS # (AUTO) 0.2 (0.0-0.4); EOSINOPHILS % 3.1 % (0.0-6.0); HEMATOCRIT 31.8 % (34.2-44.1); HEMOGLOBIN 10.1 g/dL (12.0-16.0); LYMPHOCYTES % 20.4 % (18.0-39.1); MEAN CORPUSCULAR HEMOGLOBIN 29.9 pg (28-32); MEAN CORPUSCULAR HGB CONC 31.8 g/dL (31-35); MEAN CORPUSCULAR VOLUME 94.1 fL (81-99); MONOCYTES # (AUTO) 0.4 (0.2-0.8); MONOCYTES % 7.4 % (4.4-11.3); NEUTROPHILS # (AUTO) 3.3 (2.1-6.9); NEUTROPHILS % 67.9 % (38.7-80.0); PLATELET COUNT 181 x10e3/uL (140-360); RED BLOOD COUNT 3.38 x10e6/uL (3.6-5.1); RED CELL DISTRIBUTION WIDTH 14.3 % (11.7-14.4); WHITE BLOOD COUNT 4.85 x10e3/uL (4.8-10.8)
[2023-12-30] MEDS ORDERED: NYSTATIN15 G2 TOP (07:15)
[2023-12-30 07:24] LABS: ALBUMIN 3.1 g/dL (3.5-5.0); ALBUMIN/GLOBULIN RATIO 1.1 (0.8-2.0); ANION GAP 11.2 mmol/L (8-16); BILIRUBIN,TOTAL 0.6 mg/dL (0.2-1.2); CALCIUM 7.5 mg/dL (8.4-10.2); CREATININE, SERUM 0.67 mg/dL (0.57-1.11)
[2023-12-30 07:45] LABS: POTASSIUM 3.2 mmol/L (3.5-5.1)
[2023-12-30 07:55] LABS: FREE THYROXINE INDEX 1.4483 (1.4-3.8); T3 UPTAKE 33.76 % (22.5-37.0); THYROID STIMULATING HORMONE 0.5 uIU/mL (0.350-4.940)
[2023-12-30 07:57] LABS: T4 (THYROXINE) 4.29 ug/dL (4.5-10.9)
[2023-12-30] MEDS: Morphine 4mg INJECTION 4 MG/ML INJ IV PRN (09:27)
[2023-12-30 11:24] LABS: INR 1.17; PROTHROMBIN TIME 15.1 seconds (11.9-14.5)
[2023-12-30] MEDS: PHENAZOPYRIDINE HCL 100 MG TAB PO PRN (11:36)
[2023-12-30] MEDS: POTASSIUM CHLORIDE 20 MEQ TAB CR PO ONE (11:37)
[2023-12-30] MEDS: GABAPENTIN 400 MG CAP PO SCH (13:21)
[2023-12-30] MEDS: OXYBUTYNIN CHLORIDE 5 MG TAB PO SCH (13:21)
[2023-12-30] MEDS: BACLOFEN 10 MG TAB PO SCH (13:22)
[2023-12-30] MEDS: ONDANSETRON HCL INJ 2MG/ML 2ML 2 MG/ML VIAL IV PRN (14:25)
[2023-12-30] MEDS: ACETAMINOPHEN 325 MG TAB PO PRN (14:53)
[2023-12-30] MEDS ORDERED: ALBUMIN 25% 12.5GM 50ML 150 ML IV ONE (15:26)
[2023-12-30] MEDS: APIXABAN 5 MG TABLET PO SCH (16:48)
[2023-12-30] MEDS: OXCARBAZEPINE 300 MG TAB PO SCH (16:48)
[2023-12-30 17:12] LABS: BODY FLUID APPEARANCE CLOUDY; BODY FLUID COLOR GREEN; BODY FLUID TYPE PERITONEAL
[2023-12-30 17:30] LABS: RBC,BODY FLUID 1000 cells/uL; WBC,BODY FLUID 25 cells/uL
[2023-12-30 18:53] LABS: LYMPHOCYTES,BODY FLUID 26 %; MONO/MACROPHG,BODY FLUID 30 %; OTHER CELLS,BODY FLUID 44 %; TOTAL CELLS COUNTED (DIFF) 50
[2023-12-30 18:54] LABS: NEUTROPHILS,BODY FLUID 0 %
[2023-12-30] MEDS ORDERED: IOPAMIDOL 370 MG/ML 100 ML INFUS..BTL INJ ONE (19:57)
[2023-12-31] VITALS (7 sets, daily range): BP systolic 88–145; BP diastolic 51–73; PULSE 59–74; RESP 17–20; TEMP 97.5–98; O2SAT 98–100
[2023-12-31 05:36] LABS: EOSINOPHILS # (AUTO) 0.2 (0.0-0.4); EOSINOPHILS % 4.1 % (0.0-6.0); HEMATOCRIT 32.2 % (34.2-44.1); LYMPHOCYTES % 23.9 % (18.0-39.1); MEAN CORPUSCULAR HEMOGLOBIN 29.9 pg (28-32); MEAN CORPUSCULAR HGB CONC 31.1 g/dL (31-35); MEAN CORPUSCULAR VOLUME 96.4 fL (81-99); MONOCYTES # (AUTO) 0.3 (0.2-0.8); MONOCYTES % 7.5 % (4.4-11.3); NEUTROPHILS # (AUTO) 2.6 (2.1-6.9); NEUTROPHILS % 63.3 % (38.7-80.0); PLATELET COUNT 173 x10e3/uL (140-360); RED BLOOD COUNT 3.34 x10e6/uL (3.6-5.1); RED CELL DISTRIBUTION WIDTH 13.9 % (11.7-14.4); WHITE BLOOD COUNT 4.14 x10e3/uL (4.8-10.8)
[2023-12-31] MEDS: LEVOTHYROXINE SODIUM 50 MCG TAB PO SCH (05:38)
[2023-12-31] MEDS: LEVOTHYROXINE SODIUM 125 MCG TAB PO SCH (05:38)
[2023-12-31 06:09] LABS: ALBUMIN 3.4 g/dL (3.5-5.0); ALBUMIN/GLOBULIN RATIO 1.3 (0.8-2.0); BILIRUBIN,TOTAL 0.7 mg/dL (0.2-1.2); CREATININE, SERUM 0.64 mg/dL (0.57-1.11); TOTAL PROTEIN 6.1 g/dL (6.5-8.1)
[2023-12-31] MEDS: MIDODRINE HCL 5 MG TABLET PO PRN (06:48)
[2023-12-31] MEDS: SERTRALINE HCL 100 MG TAB PO SCH (09:42)
[2023-12-31] MEDS: POLYETHYLENE GLYCOL 3350 17 GM PACK PO SCH (09:42)
[2023-12-31] MEDS ORDERED: ONDANSETRON HCL 4 MG ORAL DISINTEGRATING TAB PO PRN (19:45)
[2024-01-01] VITALS (7 sets, daily range): BP systolic 92–106; BP diastolic 57–78; PULSE 74–95; RESP 17–20; TEMP 97.6–98.2; O2SAT 99–100
[2024-01-01] MEDS: METOCLOPRAMIDE HCL 10 MG/2ML VIAL IV STA (03:23)
[2024-01-01] MEDS: METOCLOPRAMIDE HCL 10 MG/2ML VIAL IV SCH (05:16)
[2024-01-01 06:07] LABS: BASOPHILS % 0.5 % (0.0-1.0); EOSINOPHILS # (AUTO) 0.2 (0.0-0.4); EOSINOPHILS % 2.9 % (0.0-6.0); HEMATOCRIT 34.9 % (34.2-44.1); HEMOGLOBIN 11.1 g/dL (12.0-16.0); LYMPHOCYTES # (AUTO) 1.1 (1.0-3.2); LYMPHOCYTES % 18.2 % (18.0-39.1); MEAN CORPUSCULAR HEMOGLOBIN 30.2 pg (28-32); MEAN CORPUSCULAR HGB CONC 31.8 g/dL (31-35); MEAN CORPUSCULAR VOLUME 95.1 fL (81-99); MONOCYTES # (AUTO) 0.4 (0.2-0.8); NEUTROPHILS # (AUTO) 4.2 (2.1-6.9); NEUTROPHILS % 72.1 % (38.7-80.0); PLATELET COUNT 202 x10e3/uL (140-360); RED BLOOD COUNT 3.67 x10e6/uL (3.6-5.1); RED CELL DISTRIBUTION WIDTH 13.9 % (11.7-14.4); WHITE BLOOD COUNT 5.81 x10e3/uL (4.8-10.8)
[2024-01-01 06:33] LABS: ALBUMIN 3.5 g/dL (3.5-5.0); ALBUMIN/GLOBULIN RATIO 1.2 (0.8-2.0); ANION GAP 14.8 mmol/L (8-16); BILIRUBIN,TOTAL 0.3 mg/dL (0.2-1.2); CALCIUM 8.1 mg/dL (8.4-10.2); CREATININE, SERUM 0.7 mg/dL (0.57-1.11); POTASSIUM 3.8 mmol/L (3.5-5.1); TOTAL PROTEIN 6.5 g/dL (6.5-8.1)
[2024-01-01] MEDS: BISACODYL 10 MG SUPP PR ONE (09:08)
[2024-01-01] MEDS: DEXTROSE 5%/0.45% SOD CHL 1,000 ML IV SCH (09:09)
[2024-01-01] MEDS: LACTULOSE SYRUP 20 GM/30 ML UDC PO ONE (21:30)
[2024-01-01] MEDS: MECLIZINE HCL 12.5 MG TAB PO ONE (23:48)
[2024-01-02 00:54] VITALS: BP 109/68; PULSE 105; RESP 18; TEMP 98.4; O2SAT 100
[2024-01-02 01:29] VITALS: BP 109/68; PULSE 105; RESP 18; TEMP 98.4; O2SAT 100
[2024-01-02 04:56] VITALS: BP 126/89; PULSE 86; RESP 18; TEMP 98.1; O2SAT 100
[2024-01-02 05:59] LABS: BASOPHILS % 0.4 % (0.0-1.0); EOSINOPHILS # (AUTO) 0.1 (0.0-0.4); EOSINOPHILS % 1.1 % (0.0-6.0); HEMATOCRIT 33.7 % (34.2-44.1); HEMOGLOBIN 11.2 g/dL (12.0-16.0); LYMPHOCYTES # (AUTO) 0.6 (1.0-3.2); LYMPHOCYTES % 10.8 % (18.0-39.1); MEAN CORPUSCULAR HGB CONC 33.2 g/dL (31-35); MEAN CORPUSCULAR VOLUME 90.3 fL (81-99); MONOCYTES # (AUTO) 0.2 (0.2-0.8); MONOCYTES % 4.5 % (4.4-11.3); NEUTROPHILS # (AUTO) 4.5 (2.1-6.9); NEUTROPHILS % 82.8 % (38.7-80.0); PLATELET COUNT 221 x10e3/uL (140-360); RED BLOOD COUNT 3.73 x10e6/uL (3.6-5.1); RED CELL DISTRIBUTION WIDTH 13.3 % (11.7-14.4); WHITE BLOOD COUNT 5.39 x10e3/uL (4.8-10.8)
[2024-01-02] MEDS: MECLIZINE HCL 12.5 MG TAB PO SCH (05:59)
[2024-01-02 06:32] LABS: ALANINE AMINOTRANSFERASE 19 IU/L (0-55); ALBUMIN 3.6 g/dL (3.5-5.0); ALBUMIN/GLOBULIN RATIO 1.2 (0.8-2.0); ALKALINE PHOSPHATASE 81 IU/L (40-150); ANION GAP 12.6 mmol/L (8-16); BILIRUBIN,TOTAL 0.5 mg/dL (0.2-1.2); BLOOD UREA NITROGEN < 5 mg/dL (7-26); CALCIUM 8.5 mg/dL (8.4-10.2); CARBON DIOXIDE 24 mmol/L (22-29); CHLORIDE 103 mmol/L (98-107); CREATININE, SERUM 0.69 mg/dL (0.57-1.11); EST GLOMERULAR FILTRATION RATE 115 ML/MIN (>=60); GLUCOSE 122 mg/dL (74-118); POTASSIUM 3.6 mmol/L (3.5-5.1); SODIUM 136 mmol/L (136-145); TOTAL PROTEIN 6.7 g/dL (6.5-8.1)
[2024-01-02 06:38] LABS: BUN/CREATININE RATIO 7 (6-25)
[2024-01-02 09:22] VITALS: BP 108/79; PULSE 81; RESP 17; TEMP 98.4; O2SAT 100
[2024-01-02] MEDS: DEXTROSE 5%/0.45% SOD CHL 1,000 ML IV SCH (10:57)
[2024-01-02] MEDS: DIPHENHYDRAMINE HCL 25 MG CAP PO PRN (11:45)
[2024-01-02 13:46] VITALS: BP 118/82; PULSE 81; RESP 18; TEMP 98.2; O2SAT 100
[2024-01-02] MEDS: LACTULOSE SYRUP 20 GM/30 ML UDC PO ONE (15:42)
[2024-01-02 20:00] VITALS: BP 110/62; PULSE 90; RESP 20; TEMP 97.7; O2SAT 99
[2024-01-03 05:00] VITALS: BP 103/63; PULSE 88; RESP 20; TEMP 97.8; O2SAT 100
[2024-01-03] MEDS: MIDODRINE HCL 5 MG TABLET PO PRN (06:09)
[2024-01-03 06:34] LABS: BASOPHILS % 0.6 % (0.0-1.0); EOSINOPHILS # (AUTO) 0.2 (0.0-0.4); EOSINOPHILS % 3.1 % (0.0-6.0); HEMATOCRIT 34.3 % (34.2-44.1); HEMOGLOBIN 10.9 g/dL (12.0-16.0); LYMPHOCYTES # (AUTO) 1.6 (1.0-3.2); LYMPHOCYTES % 32.6 % (18.0-39.1); MEAN CORPUSCULAR HEMOGLOBIN 29.7 pg (28-32); MEAN CORPUSCULAR HGB CONC 31.8 g/dL (31-35); MEAN CORPUSCULAR VOLUME 93.5 fL (81-99); MONOCYTES # (AUTO) 0.4 (0.2-0.8); MONOCYTES % 9.2 % (4.4-11.3); NEUTROPHILS # (AUTO) 2.6 (2.1-6.9); NEUTROPHILS % 54.1 % (38.7-80.0); PLATELET COUNT 213 x10e3/uL (140-360); RED BLOOD COUNT 3.67 x10e6/uL (3.6-5.1); RED CELL DISTRIBUTION WIDTH 13.7 % (11.7-14.4); WHITE BLOOD COUNT 4.78 x10e3/uL (4.8-10.8)
[2024-01-03 06:55] LABS: ALBUMIN 3.4 g/dL (3.5-5.0); ALBUMIN/GLOBULIN RATIO 1.1 (0.8-2.0); ANION GAP 9.3 mmol/L (8-16); BILIRUBIN,TOTAL 0.3 mg/dL (0.2-1.2); CALCIUM 8.5 mg/dL (8.4-10.2); CREATININE, SERUM 0.65 mg/dL (0.57-1.11); POTASSIUM 3.3 mmol/L (3.5-5.1); TOTAL PROTEIN 6.4 g/dL (6.5-8.1)
[2024-01-03 07:50] VITALS: BP 99/65; PULSE 78; RESP 18; RESP 19; TEMP 97.7; O2SAT 99
[2024-01-03] MEDS ORDERED: PROTONIX20 MG PO (07:52)
[2024-01-03] MEDS ORDERED: MECLIZINE HCL12.5 MG PO (07:52)
[2024-01-03] MEDS ORDERED: MACROBID 100 M100 MG PO (08:30)
[2024-01-03] MEDS: BISACODYL 10 MG SUPP PR ONE (08:43)
[2024-01-03] MEDS: POTASSIUM CHLORIDE 20 MEQ TAB CR PO STA (08:44)
[2024-01-03] MEDS: DICYCLOMINE HCL 10 MG CAP PO ONE (11:35)
[2024-01-03] MEDS: CITRATE OF MAGNESIA 300ML BOTTLE PO ONE (11:41)
[2024-01-03 12:10] VITALS: BP 112/68; PULSE 82; RESP 19; TEMP 98; O2SAT 99
[2024-01-03] MEDS: LACTULOSE SYRUP 20 GM/30 ML UDC PO ONE (16:14)
[2024-01-03 16:30] VITALS: BP 111/65; PULSE 72
[2024-01-03 17:20] VITALS: BP 108/71; PULSE 83; RESP 18; TEMP 97.9; O2SAT 100
[2024-01-03] MEDS ORDERED: PROMETHAZINE 12.5MG/ NACL 0.9% 12.5 MG/50 ML BAG IV PRN (18:15)
[2024-01-03 21:00] VITALS: BP 108/71; PULSE 83; RESP 18; TEMP 97.9; O2SAT 100
[2024-01-04] VITALS: BP 103/59; PULSE 94; RESP 18; TEMP 98.4; O2SAT 100
[2024-01-04] MEDS: KETOROLAC TROMETHAMINE 30 MG/ML VIAL IV PRN (02:13)
[2024-01-04 04:05] VITALS: BP 103/74; PULSE 78; RESP 18; TEMP 98.1; O2SAT 100
[2024-01-04 07:13] LABS: BASOPHILS # (AUTO) 0.1 (0.0-0.1); BASOPHILS % 0.9 % (0.0-1.0); EOSINOPHILS # (AUTO) 0.2 (0.0-0.4); HEMATOCRIT 37.4 % (34.2-44.1); HEMOGLOBIN 11.9 g/dL (12.0-16.0); LYMPHOCYTES # (AUTO) 1.3 (1.0-3.2); MEAN CORPUSCULAR HEMOGLOBIN 30.1 pg (28-32); MEAN CORPUSCULAR HGB CONC 31.8 g/dL (31-35); MEAN CORPUSCULAR VOLUME 94.7 fL (81-99); MONOCYTES # (AUTO) 0.4 (0.2-0.8); MONOCYTES % 6.7 % (4.4-11.3); NEUTROPHILS # (AUTO) 3.8 (2.1-6.9); PLATELET COUNT 254 x10e3/uL (140-360); RED BLOOD COUNT 3.95 x10e6/uL (3.6-5.1); RED CELL DISTRIBUTION WIDTH 14.3 % (11.7-14.4); WHITE BLOOD COUNT 5.68 x10e3/uL (4.8-10.8)
[2024-01-04 07:29] LABS: ALBUMIN 3.9 g/dL (3.5-5.0); ANION GAP 12.5 mmol/L (8-16); BILIRUBIN,TOTAL 0.3 mg/dL (0.2-1.2); CREATININE, SERUM 0.72 mg/dL (0.57-1.11); POTASSIUM 3.5 mmol/L (3.5-5.1); TOTAL PROTEIN 7.8 g/dL (6.5-8.1)
[2024-01-04 08:52] VITALS: BP 89/57; PULSE 80; RESP 18; TEMP 98; O2SAT 98
[2024-01-04] MEDS ORDERED: REGLAN5 MG PO (09:29)
[2024-01-04 11:50] VITALS: BP 109/72
[2024-01-09 07:26] LABS: AMPHETAMINES Negative
[2024-01-09 07:27] LABS: OXYCODONE Negative
== END 2024-01-04 13:23 | disposition home or self-care (01) | DRG 689 ==
LOC: ER 19:55 → ERHOLD 22:07 → MED/SURG 12-30 03:47
PROVIDERS: ADMIT Family Medicine Adult Medicine; ATTEND Family Medicine Adult Medicine
PROC: 0W9G3ZZ Drainage of Peritoneal Cavity, Percutaneous Approach (ICD-10-PCS; principal; 2023-12-30)
DX: N39.0 Urinary tract infection, site not specified (principal); K85.90 Acute pancreatitis without necrosis or infection, unspecified; G82.20 Paraplegia, unspecified; Z68.42 Body mass index [BMI] 45.0-49.9, adult; R18.8 Other ascites; Z16.24 Resistance to multiple antibiotics; I82.509 Chronic embolism and thrombosis of unspecified deep veins of unspecified lower extremity; N31.9 Neuromuscular dysfunction of bladder, unspecified; E66.01 Morbid (severe) obesity due to excess calories; Z71.3 Dietary counseling and surveillance; I95.89 Other hypotension; M62.838 Other muscle spasm; B95.7 Other staphylococcus as the cause of diseases classified elsewhere; S24.102S Unspecified injury at T2-T6 level of thoracic spinal cord, sequela; Z99.3 Dependence on wheelchair; D64.9 Anemia, unspecified; R31.9 Hematuria, unspecified; K59.00 Constipation, unspecified; R42 Dizziness and giddiness; Z79.899 Other long term (current) drug therapy; Z79.01 Long term (current) use of anticoagulants; R82.5 Elevated urine levels of drugs, medicaments and biological substances; E16.2 Hypoglycemia, unspecified; L02.221 Furuncle of abdominal wall; L29.9 Pruritus, unspecified; K21.9 Gastro-esophageal reflux disease without esophagitis; Z11.52 Encounter for screening for COVID-19; V49.9XXS Car occupant (driver) (passenger) injured in unspecified traffic accident, sequela; Z95.828 Presence of other vascular implants and grafts
CPT/HCPCS: 36415; 49083; 70450; 71045; 74018; 74177; 74181; 80053; 80061; 80307; 81001; 81025; 82040; 82150; 82248; 82378; 82550; 82948; 83615; 83690; 83880; 84157; 84436; 84443; 84478; 84479; 84484; 84702; 85025; 85610; 86301; 86304; 87070; 87086; 87186; 87205; 88112; 88305; 89051; 93005; 93306; 99252; 99284; C1729; J1885; J2270; J2405; J2543; J2765; J7030; Q9967; U0002

== ENCOUNTER → 2025-07-01 | Outpatient (REF) | payer MEDICARE ==
[~2025-07-01] MED LIST changes: +MACROBID 100 M100 MG PO; +MECLIZINE HCL12.5 MG PO; +METHENAMINE HIPP1 GM PO; +NYSTATIN15 G2 TOP; +OXCARBAZEPINE600 MG PO; +PROTONIX20 MG PO; +REGLAN5 MG PO
[2025-07-01 09:55] LABS: BASOPHILS % 0.7 % (0.0-1.0); EOSINOPHILS % 2.2 % (0.0-6.0); LYMPHOCYTES % 29.4 % (18.0-39.1); MONOCYTES % 6.1 % (4.4-11.3); NEUTROPHILS % 61.1 % (38.7-80.0); RED CELL DISTRIBUTION WIDTH 14.7 % (11.7-14.4)
[2025-07-01 10:24] LABS: EST GLOMERULAR FILTRATION RATE 102.0 ML/MIN (>=60)
[2025-07-01 12:26] LABS: INR 1.5
== END ==
LOC: US 09:14
PROVIDERS: ATTEND Family Medicine Adult Medicine
DX: R18.8 Other ascites (principal)
CPT/HCPCS: 36415; 76705; 80053; 85025; 85610; 85730